=== PATIENT | female | born 1945 | race Caucasian/White ===

== ENCOUNTER → 2022-11-19 | Outpatient (CLI) | payer MEDICARE, OTHER ==
[2022-11-19 11:03] LABS: HCT 50.8 % (37.2-46.3); MCHC 31.5 d/dL (32.0-37.0); MCV 95.3 FL (80.0-97.0); Mean Platelet Volume 9.8 FL (9.5-12.2); NRBC Per 100 WBC 0 X 10*3/uL (0.00-0.01); Platelet Count 234 X 10*3/uL (140-440); RBC 5.33 X 10*6/uL (4.10-5.20); RDW 14.3 % (11.5-14.5); WBC 8.54 X 10*3/uL (4.50-10.00)
[2022-11-19 11:04] LABS: Basophils # (A) 0.04 X 10*3/uL (0.00-0.10); Basophils % (A) 0.5 %; Eosinophils # (A) 0.17 X 10*3/uL (0.04-0.35); Lymphocytes # (A) 1.53 X 10*3/uL (0.90-5.00); Lymphocytes % (A) 17.9 %; Monocytes # (A) 0.65 X 10*3/uL (0.20-1.00); Monocytes % (A) 7.6 %; Neutrophils # (A) 6.12 X 10*3/uL (1.80-7.70); Neutrophils % (A) 71.6 %
[2022-11-19 11:42] LABS: ALT 11 U/L (8-44); AST 22 U/L (13-35); Albumin 3.9 d/dL (3.8-4.9); Albumin/Globulin Ratio 1.44 Ratio (1.60-3.17); Alkaline Phosphatase 151 U/L (41-126); Bilirubin, Conjugated 0.35 mg/dL (0.20-0.40); Bilirubin,Unconjugated 0.85 mg/dL (0.20-1.00); Calcium 9.6 mg/dL (8.7-10.3); Carbon Dioxide 27.8 mmol/L (21.6-31.8); Chloride 104 mmol/L (96-109); Globulin 2.7 d/dL (1.6-3.3); Glucose 125 mg/dL (70-110); Magnesium 1.8 mg/dL (1.5-2.4); Potassium 4.3 mmol/L (3.5-5.5); Sodium 143 mmol/L (135-145); Total Bilirubin 1.2 mg/dL (0.3-1.2); Total Protein 6.6 d/dL (6.2-8.2)
[2022-11-19 14:18] LABS: Creatinine,Urine Random 50.7 mg/dL (28.0-217.0); Total Protein,Urine Random 7.3 mg/dL (0.0-13.5)
[2022-11-20 15:56] LABS: Chol/HDL Ratio 2.54 Ratio; LDL Cholesterol,Calculated 74.8 mg/dL (0.0-131.0); VLDL Calculation 19.78 mg/dL (5.00-40.00)
== END | disposition home or self-care (01) ==
LOC: LABWHC1 07:10
PROVIDERS: ATTEND Family Medicine
DX: Z51.81 Encounter for therapeutic drug level monitoring (principal); Z94.4 Liver transplant status; Z79.899 Other long term (current) drug therapy; Z48.298 Encounter for aftercare following other organ transplant; D84.9 Immunodeficiency, unspecified; E55.9 Vitamin D deficiency, unspecified
CPT/HCPCS: 36415; 80048; 80061; 80076; 80195; 82306; 82465; 82570; 83735; 84156; 85025

== ENCOUNTER → 2023-02-20 | Outpatient (CLI) | payer MEDICARE, OTHER ==
[2023-02-20 11:13] LABS: Basophils # (A) 0.03 X 10*3/uL (0.00-0.10); Basophils % (A) 0.4 %; Eosinophils # (A) 0.21 X 10*3/uL (0.04-0.35); Eosinophils % (A) 2.9 %; HCT 48.9 % (37.2-46.3); Lymphocytes # (A) 2.02 X 10*3/uL (0.90-5.00); Lymphocytes % (A) 28.1 %; MCH 30.3 pg (27.0-32.0); MCHC 32.7 d/dL (32.0-37.0); MCV 92.6 FL (80.0-97.0); Monocytes # (A) 0.58 X 10*3/uL (0.20-1.00); Monocytes % (A) 8.1 %; NRBC Per 100 WBC 0 X 10*3/uL (0.00-0.01); Neutrophils # (A) 4.34 X 10*3/uL (1.80-7.70); Neutrophils % (A) 60.2 %; Platelet Count 225 X 10*3/uL (140-440); RBC 5.28 X 10*6/uL (4.10-5.20)
[2023-02-20 11:28] LABS: ALT 12 U/L (8-44); AST 18 U/L (13-35); Albumin 3.9 d/dL (3.8-4.9); Albumin/Globulin Ratio 1.56 Ratio (1.60-3.17); Alkaline Phosphatase 156 U/L (41-126); BUN/Creat Ratio 17.33 Ratio (12.00-20.00); Bilirubin, Conjugated 0.39 mg/dL (0.20-0.40); Bilirubin,Unconjugated 0.91 mg/dL (0.20-1.00); Blood Urea Nitrogen 15.6 mg/dL (9.0-27.0); Calcium 9.6 mg/dL (8.7-10.3); Carbon Dioxide 34.3 mmol/L (21.6-31.8); Chloride 108 mmol/L (96-109); Chol/HDL Ratio 2.63 Ratio; Globulin 2.5 d/dL (1.6-3.3); Glucose 110 mg/dL (70-110); LDL Cholesterol,Calculated 64.5 mg/dL (0.0-131.0); Magnesium 1.7 mg/dL (1.5-2.4); Potassium 4.8 mmol/L (3.5-5.5); Sodium 148 mmol/L (135-145); Total Bilirubin 1.3 mg/dL (0.3-1.2); Total Protein 6.4 d/dL (6.2-8.2)
== END | disposition home or self-care (01) ==
LOC: LABWHC1 07:01
PROVIDERS: ATTEND Internal Medicine
DX: Z51.81 Encounter for therapeutic drug level monitoring (principal); D84.9 Immunodeficiency, unspecified; Z94.4 Liver transplant status; Z48.298 Encounter for aftercare following other organ transplant; Z79.899 Other long term (current) drug therapy
CPT/HCPCS: 36415; 80048; 80061; 80076; 80195; 83735; 85025

== ENCOUNTER 2023-05-11 11:35 | Inpatient (IN) | payer MEDICARE, OTHER ==
[2023-05-11] MEDS ORDERED: SODIUM CHLORIDE 0.9% 1,000 ML IV STA (11:46)
--- NOTE | 2023-05-11 11:52 | ED ---
Weakness HPI - General Chief complaint: Weakness Stated complaint: Weakness Time Seen by Provider: 05/11/23 11:40 Source: patient, family, EMS, RN notes reviewed Limitations: no limitations - History of Present Illness Initial comments: This is a 77 year old female who presents to the emergency department for generalized weakness. States that over the last week she has had no energy. Also reports diarrhea. Describes the diarrhea as being watery, but believes that she is only going a few times a day. Denies any blood in her stool or dark or tarry stools. Denies any associated abdominal pain, nausea, vomiting, or fevers. She had been on Amoxicillin 2 weeks ago for a dental cleaning and had a cataract removed on the right 2 weeks ago. EMS noted her to be hypotensive and hypoxic. Patient denies any chest pain or shortness of breath. States that her BP is usually high. MD Complaint: generalized weakness Onset/Timin -: week(s) - Related Data Home Medications Medication Instructions Recorded Confirmed Atorvastatin [Lipitor] 10 mg PO DAILY 05/11/23 05/11/23 Cholecalciferol [Vitamin D3 (25 50 mcg PO DAILY 05/11/23 05/11/23 Mcg = 1000 Iu)] Ketorolac 0.5% Ophth Soln [Acular 1 drop RIGHT EYE BID 05/11/23 05/11/23 0.5%] Omeprazole [PriLOSEC] 20 mg PO DAILY 05/11/23 05/11/23 Sirolimus 1 mg PO DAILY 05/11/23 05/11/23 amLODIPine [Norvasc] 5 mg PO DAILY 05/11/23 05/11/23 atenoloL [Tenormin] 75 mg PO DAILY 05/11/23 05/11/23 azaTHIOprine [Imuran] 50 mg PO DAILY 05/11/23 05/11/23 prednisoLONE ACETATE 1% OPHTH 1 drop RIGHT EYE BID 05/11/23 05/11/23 [Pred Forte 1%] ursodioL [Ursodiol] 300 mg PO BID 05/11/23 05/11/23 Allergies Allergy/AdvReac Type Severity Reaction Status Date / Time No Known Allergies Allergy Verified 05/11/23 12:23 Review of Systems ROS Statement: Those systems with pertinent positive or pertinent negative responses have been documented in the HPI. ROS Other: All systems not noted in ROS Statement are negative. Past Medical History Past Medical History: Hypertension History of Any Multi-Drug Resistant Organisms: None Reported Additional Past Surgical History / Comment(s): liver transplant Past Psychological History: No Psychological Hx Reported Smoking Status: Never smoker Past Alcohol Use History: None Reported Past Drug Use History: None Reported General Exam Limitations: no limitations General appearance: alert, in no apparent distress Head exam: Present: atraumatic, normocephalic, normal inspection Respiratory exam: Present: normal lung sounds bilaterally. Absent: respiratory distress, wheezes, rales, rhonchi, stridor Cardiovascular Exam: Present: regular rate, normal rhythm, normal heart sounds. Absent: systolic murmur, diastolic murmur, rubs, gallop, clicks GI/Abdominal exam: Present: soft, normal bowel sounds. Absent: distended, tenderness, guarding, rebound, rigid Neurological exam: Present: alert, oriented X3, CN II-XII intact Psychiatric exam: Present: normal affect, normal mood Skin exam: Present: warm, dry, intact, normal color. Absent: rash Course Vital Signs 05/11/23 05/11/23 05/11/23 11:37 13:00 14:00 Temperature 98.7 F Pulse Rate 82 75 74 Respiratory 20 18 18 Rate Blood Pressure 88/62 124/68 133/55 O2 Sat by Pulse 89 L 96 95 Oximetry 05/11/23 05/11/23 05/11/23 14:39 17:07 18:22 Temperature 98.9 F 98 F 97.9 F Pulse Rate 72 65 95 Respiratory 18 16 20 Rate Blood Pressure 111/61 106/56 115/52 O2 Sat by Pulse Oximetry 05/11/23 05/11/23 20:46 22:05 Temperature Pulse Rate 65 63 Respiratory 19 17 Rate Blood Pressure 117/64 123/57 O2 Sat by Pulse 95 97 Oximetry Medical Decision Making - Medical Decision Making This is a 77-year-old female who presents to the emergency department for generalized weakness. Was pt. sent in by a medical professional or institution? @ -No Did you speak to anyone other than the patient for history? @ -No Did you review nursing and triage notes? @ -Yes, and I agree, it is accurate with regards to the patient's symptoms. Were old charts reviewed? @ -No Differential Diagnosis? @ -Differential Weakness: Hypoglycemia, shock, sepsis, hyponatremia, anemia, infection, WI, ETOH, adverse medicine reaction, overdose, stroke, this is not meant to be an all-inclusive list. EKG interpreted by me (3pts min.)? @ -EKG interpreted by me demonstrating the following: Sinus rhythm. Ve ntricular rate 81 beats per minute, NV interval 148 ms, QRS duration 100 ms, QTC 403 ms. X-rays interpreted by me (1pt min.)? @ -Chest x-ray obtained, my interpretation identifies no localized consolidations or infiltrates. CT interpreted by me (1pt min.)? @ -CT scan of the abdomen and pelvis obtained. My interpretation identifies no evidence of bowel wall thickening or free air. U/S interpreted by me (1pt. min.)? @ -Not obtained What testing was considered but not performed? (CT, X-rays, U/S, labs)? Why? @ -None What meds were considered but not given? Why? @ -None Did you discuss the management of the patient with other professionals? @ -Yes, Dr. Kim, who accepts the patient for admission Did you reconcile home meds? @ -Yes Was smoking cessation discussed for >3mins.? @ -No Was critical care preformed (if so, how long)? @ -No Were there social determinants of health that impacted care today? How? (Homelessness, low income, unemployed, alcoholism, drug addiction, transportation, low edu. Level, literacy, decrease access to med. care, senior living, rehab)? @ -No Was there de-escalation of care discussed even if they declined? (Discuss DNR or withdrawal of care, Hospice)? @ -No What co-morbidities impacted this encounter? (DM, HTN, Smoking, COPD, CAD, Cancer, CVA, Hep., AIDS, mental health diagnosis, sleep apnea, morbid obesity)? @ -HTN Was patient admitted / discharged? @ -Admitted. Patient was hypotensive on arrival with a BP of 88/62. This was treated with IV fluids and she had improvement in her pressure. Lab work obtained revealing leukocytosis and multiple other irregularities including an initial bicarb of 12, poor renal function, elevated lactic acid of 2.9, low magnesium of 1.3, and an elevated troponin of 0.061. Urinalysis negative for signs of infection, C.diff, COVID, influenza, and RSV testing were negative. Chest x-ray demonstrates an elevated right hemidiaphragm with bilateral discoid atelectasis or scarring favored over pneumonia. They also advised correlation for pulmonary arterial hypertension. We did also obtain a computed tomography scan of the abdomen and pelvis for further evaluation. There is no evidence for any acute intra-abdominal process. She has transplant changes to the liver with a masslike area in the right hepatic lobe measuring up to 4.3 cm as well as pneumobilia secondary to transplant changes. Unlikely that these findings are related to the patient's current presentation. She has no abdominal pain and is essentially asymptomatic aside from the weakness and diarrhea. The cause of her symptoms and multiple lab abnormalities is not entirely clear. Blood cultures were obtained. Patient admitted to medicine for weakness, mixed acid base disturbance, leukocytosis, and elevated troponin. Maintenance fluids initiated and serial troponins ordered. Undiagnosed new problem with uncertain prognosis? @ -None Drug Therapy requiring intensive monitoring for toxicity (Heparin, Nitro, Insulin, Cardizem)? @ -None Were any procedures done? @ -None Diagnosis/symptom? @ -Weakness, mixed acid base disturbance, leukocytosis, elevated troponin Acute, or Chronic, or Acute on Chronic? @ -Acute Uncomplicated (without systemic symptoms) or Complicated (systemic symptoms)? @ -Complicated Side effects of treatment? @ -None Exacerbation, Progression, or Severe Exacerbation] @ -Not applicable Poses a threat to life or bodily function? @ -Yes This case was discussed in detail with the attending ED physician, Dr. Adhikari. Presentation, findings, and treatment plan discussed in detail as well. - Lab Data Result diagrams: 05/11/23 11:58 05/11/23 11:58 Lab Results 05/11/23 05/11/23 05/11/23 Range/Units 11:58 11:58 11:58 WBC 16.8 H (3.8-10.6) k/uL RBC 4.48 (3.80-5.40) m/uL Hgb 13.6 (11.4-16.0) gm/dL Hct 41.9 (34.0-46.0) % MCV 93.4 (80.0-100.0) fL MCH 30.3 (25.0-35.0) pg MCHC 32.4 (31.0-37.0) g/dL RDW 13.2 (11.5-15.5) % Plt Count 224 (150-450) k/uL MPV 8.1 Neutrophils % 90 % Lymphocytes % 4 % Monocytes % 5 % Eosinophils % 0 % Basophils % 0 % Neutrophils # 15.1 H (1.3-7.7) k/uL Lymphocytes # 0.7 L (1.0-4.8) k/uL Monocytes # 0.8 (0-1.0) k/uL Eosinophils # 0.0 (0-0.7) k/uL Basophils # 0.0 (0-0.2) k/uL Manual Slide Review Performed Hypochromasia Slight PT 12.8 H (10.0-12.5) sec INR 1.2 H (<1.2) APTT 24.0 (22.0-30.0) sec VBG pH (7.31-7.41) VBG pCO2 (37-51) mmHg VBG HCO3 (24-28) mmol/L Sodium (137-145) mmol/L Potassium (3.5-5.1) mmol/L Chloride (98-107) mmol/L Carbon Dioxide (22-30) mmol/L Anion Gap mmol/L BUN (7-17) mg/dL Creatinine (0.52-1.04) mg/dL Est GFR (CKD-EPI)AfAm (>60 ml/min/1.73 sqM) Est GFR (CKD-EPI)NonAf (>60 ml/min/1.73 sqM) Glucose (74-99) mg/dL Lactic Ac Sepsis Rflx Plasma Lactic Acid Clark (0.7-2.0) mmol/L Calcium (8.4-10.2) mg/dL Magnesium (1.6-2.3) mg/dL Total Bilirubin (0.2-1.3) mg/dL AST (14-36) U/L ALT (4-34) U/L Alkaline Phosphatase (38-126) U/L Troponin I (0.000-0.034) ng/mL Total Protein (6.3-8.2) g/dL Albumin (3.5-5.0) g/dL Urine Color Yellow Urine Appearance Cloudy H (Clear) Urine pH 5.5 (5.0-8.0) Ur Specific [place] 1.016 (1.001-1.035) Urine Protein 2+ H (Negative) Urine Glucose (UA) Trace H (Negative) Urine Ketones Negative (Negative) Urine Blood Moderate H (Negative) Urine Nitrite Negative (Negative) Urine Bilirubin Negative (Negative) Urine Urobilinogen <2.0 (<2.0) mg/dL Ur Leukocyte Esterase Negative (Negative) Urine RBC 4 (0-5) /hpf Urine WBC 3 (0-5) /hpf Ur Squamous Epith Cells 2 (0-4) /hpf Urine Bacteria Rare H (None) /hpf Hyaline Casts 10 H (0-2) /lpf Granular Casts 3 (0) /lpf Urine Mucus Moderate H (None) /hpf C. difficile (EIA) Intrp (Negative) Influenza Type A (PCR) (Not Detectd) Influenza Type B (PCR) (Not Detectd) RSV (PCR) (Not Detectd) SARS-CoV-2 (PCR) (Not Detectd) 05/11/23 05/11/23 05/11/23 Range/Units 11:58 11:58 11:58 WBC (3.8-10.6) k/uL RBC (3.80-5.40) m/uL Hgb (11.4-16.0) gm/dL Hct (34.0-46.0) % MCV (80.0-100.0) fL MCH (25.0-35.0) pg MCHC (31.0-37.0) g/dL RDW (11.5-15.5) % Plt Count (150-450) k/uL MPV Neutrophils % % Lymphocytes % % Monocytes % % Eosinophils % % Basophils % % Neutrophils # (1.3-7.7) k/uL Lymphocytes # (1.0-4.8) k/uL Monocytes # (0-1.0) k/uL Eosinophils # (0-0.7) k/uL Basophils # (0-0.2) k/uL Manual Slide Review Hypochromasia PT (10.0-12.5) sec INR (<1.2) APTT (22.0-30.0) sec VBG pH (7.31-7.41) VBG pCO2 (37-51) mmHg VBG HCO3 (24-28) mmol/L Sodium 140 (137-145) mmol/L Potassium 3.7 (3.5-5.1) mmol/L Chloride 114 H (98-107) mmol/L Carbon Dioxide 12 L (22-30) mmol/L Anion Gap 14 mmol/L BUN 18 H (7-17) mg/dL Creatinine 1.13 H (0.52-1.04) mg/dL Est GFR (CKD-EPI)AfAm 55 (>60 ml/min/1.73 sqM) Est GFR (CKD-EPI)NonAf 48 (>60 ml/min/1.73 sqM) Glucose 167 H (74-99) mg/dL Lactic Ac Sepsis Rflx Plasma Lactic Acid Clark 2.9 H* (0.7-2.0) mmol/L Calcium 8.8 (8.4-10.2) mg/dL Magnesium 1.3 L (1.6-2.3) mg/dL Total Bilirubin 2.1 H (0.2-1.3) mg/dL AST 69 H (14-36) U/L ALT 36 H (4-34) U/L Alkaline Phosphatase 159 H (38-126) U/L Troponin I 0.061 H* (0.000-0.034) ng/mL Total Protein 6.3 (6.3-8.2) g/dL Albumin 3.1 L (3.5-5.0) g/dL Urine Color Urine Appearance (Clear) Urine pH (5.0-8.0) Ur Specific [place] (1.001-1.035) Urine Protein (Negative) Urine Glucose (UA) (Negative) Urine Ketones (Negative) Urine Blood (Negative) Urine Nitrite (Negative) Urine Bilirubin (Negative) Urine Urobilinogen (<2.0) mg/dL Ur Leukocyte Esterase (Negative) Urine RBC (0-5) /hpf Urine WBC (0-5) /hpf Ur Squamous Epith Cells (0-4) /hpf Urine Bacteria (None) /hpf Hyaline Casts (0-2) /lpf Granular Casts (0) /lpf Urine Mucus (None) /hpf C. difficile (EIA) Intrp (Negative) Influenza Type A (PCR) (Not Detectd) Influenza Type B (PCR) (Not Detectd) RSV (PCR) (Not Detectd) SARS-CoV-2 (PCR) (Not Detectd) 05/11/23 05/11/23 05/11/23 Range/Units 11:58 11:58 13:52 WBC (3.8-10.6) k/uL RBC (3.80-5.40) m/uL Hgb (11.4-16.0) gm/dL Hct (34.0-46.0) % MCV (80.0-100.0) fL MCH (25.0-35.0) pg MCHC (31.0-37.0) g/dL RDW (11.5-15.5) % Plt Count (150-450) k/uL MPV Neutrophils % % Lymphocytes % % Monocytes % % Eosinophils % % Basophils % % Neutrophils # (1.3-7.7) k/uL Lymphocytes # (1.0-4.8) k/uL Monocytes # (0-1.0) k/uL Eosinophils # (0-0.7) k/uL Basophils # (0-0.2) k/uL Manual Slide Review Hypochromasia PT (10.0-12.5) sec INR (<1.2) APTT (22.0-30.0) sec VBG pH (7.31-7.41) VBG pCO2 (37-51) mmHg VBG HCO3 (24-28) mmol/L Sodium (137-145) mmol/L Potassium (3.5-5.1) mmol/L Chloride (98-107) mmol/L Carbon Dioxide (22-30) mmol/L Anion Gap mmol/L BUN (7-17) mg/dL Creatinine (0.52-1.04) mg/dL Est GFR (CKD-EPI)AfAm (>60 ml/min/1.73 sqM) Est GFR (CKD-EPI)NonAf (>60 ml/min/1.73 sqM) Glucose (74-99) mg/dL Lactic Ac Sepsis Rflx Y Plasma Lactic Acid Clark (0.7-2.0) mmol/L Calcium (8.4-10.2) mg/dL Magnesium (1.6-2.3) mg/dL Total Bilirubin (0.2-1.3) mg/dL AST (14-36) U/L ALT (4-34) U/L Alkaline Phosphatase (38-126) U/L Troponin I (0.000-0.034) ng/mL Total Protein (6.3-8.2) g/dL Albumin (3.5-5.0) g/dL Urine Color Urine Appearance (Clear) Urine pH (5.0-8.0) Ur Specific [place] (1.001-1.035) Urine Protein (Negative) Urine Glucose (UA) (Negative) Urine Ketones (Negative) Urine Blood (Negative) Urine Nitrite (Negative) Urine Bilirubin (Negative) Urine Urobilinogen (<2.0) mg/dL Ur Leukocyte Esterase (Negative) Urine RBC (0-5) /hpf Urine WBC (0-5) /hpf Ur Squamous Epith Cells (0-4) /hpf Urine Bacteria (None) /hpf Hyaline Casts (0-2) /lpf Granular Casts (0) /lpf Urine Mucus (None) /hpf C. difficile (EIA) Intrp Negative (Negative) Influenza Type A (PCR) Not Detected (Not Detectd) Influenza Type B (PCR) Not Detected (Not Detectd) RSV (PCR) Not Detected (Not Detectd) SARS-CoV-2 (PCR) Not Detected (Not Detectd) 05/11/23 Range/Units 14:47 WBC (3.8-10.6) k/uL RBC (3.80-5.40) m/uL Hgb (11.4-16.0) gm/dL Hct (34.0-46.0) % MCV (80.0-100.0) fL MCH (25.0-35.0) pg MCHC (31.0-37.0) g/dL RDW (11.5-15.5) % Plt Count (150-450) k/uL MPV Neutrophils % % Lymphocytes % % Monocytes % % Eosinophils % % Basophils % % Neutrophils # (1.3-7.7) k/uL Lymphocytes # (1.0-4.8) k/uL Monocytes # (0-1.0) k/uL Eosinophils # (0-0.7) k/uL Basophils # (0-0.2) k/uL Manual Slide Review Hypochromasia PT (10.0-12.5) sec INR (<1.2) APTT (22.0-30.0) sec VBG pH 7.44 H (7.31-7.41) VBG pCO2 29 L (37-51) mmHg VBG HCO3 20 L (24-28) mmol/L Sodium (137-145) mmol/L Potassium (3.5-5.1) mmol/L Chloride (98-107) mmol/L Carbon Dioxide (22-30) mmol/L Anion Gap mmol/L BUN (7-17) mg/dL Creatinine (0.52-1.04) mg/dL Est GFR (CKD-EPI)AfAm (>60 ml/min/1.73 sqM) Est GFR (CKD-EPI)NonAf (>60 ml/min/1.73 sqM) Glucose (74-99) mg/dL Lactic Ac Sepsis Rflx Plasma Lactic Acid Clark (0.7-2.0) mmol/L Calcium (8.4-10.2) mg/dL Magnesium (1.6-2.3) mg/dL Total Bilirubin (0.2-1.3) mg/dL AST (14-36) U/L ALT (4-34) U/L Alkaline Phosphatase (38-126) U/L Troponin I (0.000-0.034) ng/mL Total Protein (6.3-8.2) g/dL Albumin (3.5-5.0) g/dL Urine Color Urine Appearance (Clear) Urine pH (5.0-8.0) Ur Specific [place] (1.001-1.035) Urine Protein (Negative) Urine Glucose (UA) (Negative) Urine Ketones (Negative) Urine Blood (Negative) Urine Nitrite (Negative) Urine Bilirubin (Negative) Urine Urobilinogen (<2.0) mg/dL Ur Leukocyte Esterase (Negative) Urine RBC (0-5) /hpf Urine WBC (0-5) /hpf Ur Squamous Epith Cells (0-4) /hpf Urine Bacteria (None) /hpf Hyaline Casts (0-2) /lpf Granular Casts (0) /lpf Urine Mucus (None) /hpf C. difficile (EIA) Intrp (Negative) Influenza Type A (PCR) (Not Detectd) Influenza Type B (PCR) (Not Detectd) RSV (PCR) (Not Detectd) SARS-CoV-2 (PCR) (Not Detectd) - Radiology Data Radiology results: report reviewed, image reviewed Disposition Clinical Impression: Weakness, Elevated troponin, Leukocytosis, Disturbance of acid-base balance Disposition: ADMITTED IP TO THIS HOSP Time of Disposition: 17:30
--- NOTE | 2023-05-11 13:15 | XR ---
EXAMINATION TYPE: XR chest 2V DATE OF EXAM: 05/11/2023 COMPARISON: NONE TECHNIQUE: PA and lateral views submitted. HISTORY: Weakness FINDINGS: The lungs are clear and there is no pneumothorax, pleural effusion, or focal pneumonia. Heart size normal and no overt failure. Osseous structures demonstrate hypertrophic and degenerative changes of the spine. Diffuse osteopenia. Age indeterminate mild wedge deformity thoracolumbar junction. Elevate d right hemidiaphragm. Large hiatal hernia. Linear changes bilateral lungs for which atelectasis or s carring favored. Pulmonary arteries are prominent correlate for pulmonary arterial retention. Biapica l pleural thickening. IMPRESSION: 1. Elevated right hemidiaphragm with bilateral discoid atelectasis or scarring favored over pneumonia . 2. Large hiatal hernia. 3. Correlate for pulmonary arterial hypertension..
[2023-05-11 13:38] LABS: INR 1.2 (<1.2); Prothrombin Time 12.8 sec (10.0-12.5)
[2023-05-11 13:45] LABS: Basophils % (A) 0 %; Eosinophils % (A) 0 %; HCT 41.9 % (34.0-46.0); HGB 13.6 gm/dL (11.4-16.0); Hypochromasia Slight; Lymphocytes # (A) 0.7 k/uL (1.0-4.8); Lymphocytes % (A) 4 %; MCH 30.3 pg (25.0-35.0); MCHC 32.4 g/dL (31.0-37.0); MCV 93.4 fL (80.0-100.0); Mean Platelet Volume 8.1; Monocytes # (A) 0.8 k/uL (0-1.0); Monocytes % (A) 5 %; Neutrophils # (A) 15.1 k/uL (1.3-7.7); Neutrophils % (A) 90 %; Platelet Count 224 k/uL (150-450); RBC 4.48 m/uL (3.80-5.40); RDW 13.2 % (11.5-15.5); WBC 16.8 k/uL (3.8-10.6)
[2023-05-11 14:02] LABS: ALT 36 U/L (4-34); AST 69 U/L (14-36); African American GFR (CKD) 55 (>60 ml/min/1.73 sqM); Albumin 3.1 g/dL (3.5-5.0); Alkaline Phosphatase 159 U/L (38-126); Anion Gap 14 mmol/L; Blood Urea Nitrogen 18 mg/dL (7-17); Calcium 8.8 mg/dL (8.4-10.2); Carbon Dioxide 12 mmol/L (22-30); Chloride 114 mmol/L (98-107); Glucose 167 mg/dL (74-99); Magnesium 1.3 mg/dL (1.6-2.3); Non-African American GFR(CKD) 48 (>60 ml/min/1.73 sqM); Potassium 3.7 mmol/L (3.5-5.1); Sodium 140 mmol/L (137-145); Total Bilirubin 2.1 mg/dL (0.2-1.3); Total Protein 6.3 g/dL (6.3-8.2)
[2023-05-11 15:53] LABS: Appearance,Urine Cloudy (Clear); Bacteria,Urine Rare /hpf; Bilirubin,Urine Negative (Negative); Blood,Urine Moderate (Negative); Color,Urine Yellow; Glucose,Urine (UA) Trace (Negative); Granular Casts,Urine 3 /lpf (0); Hyaline Casts,Urine 10 /lpf (0-2); Ketones,Urine Negative (Negative); Leukocyte Esterase,Urine Negative (Negative); Mucus,Urine Moderate /hpf; Nitrite,Urine Negative (Negative); PH, Urine 5.5 (5.0-8.0); Protein,Urine 2+ (Negative); RBC,Urine 4 /hpf (0-5); Specific Gravity,Urine 1.016 (1.001-1.035); Squamous Epithelial Cell,Urine 2 /hpf (0-4); Urobilinogen,Urine <2.0 mg/dL (<2.0); WBC,Urine 3 /hpf (0-5)
[2023-05-11] MEDS ORDERED: MAGNESIUM OXIDE 400 MG TAB PO STA (16:13)
--- NOTE | 2023-05-11 17:11 | CT ---
EXAMINATION TYPE: CT abdomen pelvis wo con CT DLP: 731.6 mGycm, Automated exposure control for dose reduction was used. DATE OF EXAM: 05/11/2023 4:49 PM COMPARISON: None. CLINICAL INDICATION:Female, 77 years old with history of Abnormal labs, hypotensive, hx of liver euceda splant; Abnormal labs, hypotensive, hx of liver transplant TECHNIQUE: Axial CT abdomen pelvis wo con;Sagittal and coronal reformats were created on a separate workstation. Contrast used: mL of , (none if empty) Oral contrast used: without Oral Contrast (none if empty) FINDINGS: LOWER CHEST: Elevated right diaphragm. The heart is mildly enlarged for size. Moderate coronary arter y atherosclerosis. ABDOMEN LIVER: Transplant changes to the liver are present. Hepatic lobe mass like area with low attenuation measuring 3.5 x 4.3 cm. GALLBLADDER AND BILE DUCTS: The gallbladder surgically absent. There is few foci of gas likely within the biliary system. Pneumobilia in the common bile duct is present. PANCREAS: Unremarkable. SPLEEN: Unremarkable. ADRENAL GLANDS: Unremarkable. KIDNEYS AND URETERS: No evidence of hydronephrosis or renal calculus. The ureters are unremarkable. PELVIS BLADDER: Unremarkable REPRODUCTIVE: Unremarkable. ABDOMEN & PELVIS STOMACH AND BOWEL: No evidence of bowel obstruction. Large hiatal hernia. PERITONEUM/RETROPERITONEUM: No evidence of pneumoperitoneum or free fluid. VASCULATURE: No evidence of aortic aneurysm. MUSCULOSKELETAL: No acute osseous abnormalities. Moderate disc degeneration changes are present throu ghout the thoracolumbar spine. Sclerotic appearance with enlargement of the left hemipelvis. LYMPH NODES: No gross evidence for lymphadenopathy. SOFT TISSUE/ABDOMINAL WALL: Unremarkable IMPRESSION: 1. No evidence for intra-abdominal hematoma or hemorrhage. 2. Transplant changes to the liver Masslike area within the right hepatic lobe measuring up to 4.3 c m. Further evaluation with MRI is recommended. 3. Pneumobilia likely secondary to transplant changes. 4. Large hiatal hernia. 5. 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
[2023-05-11 17:31] LABS: VBG PH 7.44 (7.31-7.41)
[2023-05-11] MEDS ORDERED: ONDANSETRON 4 MG/2 ML VIAL IVP PRN (17:51)
[2023-05-11] MEDS ORDERED: ACETAMINOPHEN TAB 325 MG TAB PO PRN (17:51)
[2023-05-11] MEDS ORDERED: NALOXONE 0.4 MG/ML 1 ML VIAL IV PRN (17:51)
[2023-05-11] MEDS ORDERED: HYDROcodone/APAP 5-325MG 1 EACH TAB PO PRN (17:51)
[2023-05-11] MEDS: SODIUM CHLORIDE 0.9% 1,000 ML IV SCH (18:45)
[2023-05-11] MEDS: ursodioL 300 MG CAP PO SCH (20:43)
[2023-05-11] MEDS: prednisoLONE ACETATE 1% OPHTH DROPS 5 ML BTL RIGHT EYE SCH (20:43)
[2023-05-11] MEDS: KETOROLAC 0.5% OPHTH DROPS 5 ML BTL RIGHT EYE SCH (20:43)
--- NOTE | 2023-05-12 01:50 | P.HPIM ---
History of Present Illness H&P Date: 05/11/23 Patient is a 77-year-old female with a PMH of hypertension, s/p liver transplant 23 years ago (doesn't recall why), who presents to the emergency room with complaints of generalized weakness and area. Patient reports that she began having loose bowel movements roughly one week ago. Reports having undergone a dental cleaning roughly a month ago when she was given a 2000 mg single dose of amoxicillin as per med review. She has been having 2 watery bowel movements daily for the past 1 week without blood or mucus. Denies focal weakness, numbness, tingling. Denied chest discomfort, shortness of breath, fever, chills, cough, nausea, vomiting, or pain. Denies any urinary complaints. CT abdomen and pelvis in the emergency room revealed a 4.3 cm mass-like area hypertension with large hiatal hernia. Chest x-ray revealed findings of arterial hypertension. EKG reveals sinus rhythm at 81 bpm with T-wave inversion in leads V2 with flattening in lead V3 with no additional ST/T-wave changes noted as reviewed by me. Laboratory evaluation was remarkable for leukocytosis of 16.8, CO2 12, BUN 18, creatinine 1.13, lactic acid 2.9, magnesium 1.3, AST 69, ALT 36, troponin 0.061 with a viral respiratory panel negative. ED documentation reviewed and case discussed with ED provider. Review of systems: Pertinent positives and negatives as discussed in HPI, a complete review of systems was performed and all other systems are negative. Physical examination: Vital signs reviewed General: non toxic, no distress, appears at stated age, obese Derm: no unusual rashes/lesions, warm Head: atraumatic, normocephalic, symmetric Eyes: EOMI, no lid lag, anicteric sclera, pupils equal round reactive to light ENT: Nose and ears atraumatic Neck: No cervical lymphadenopathy, trachea midline, supple Mouth: no lip lesion, mucus membranes moist Cardiovascular: S1S2 reg, no murmur, positive dorsalis pedis pulse bilateral, no edema Lungs: CTA bilateral, no rhonchi, no rales, no accessory muscle use Abdominal: soft, nontender to palpation, no guarding Ext: muscle strength 4 out of 5 in all 4 extremities grossly, no gross muscle atrophy, no contractures, Neuro: CN II-XI grossly intact, no gross focal neuro deficits Psych: Alert, oriented, appropriate affect Assessment: Elevated troponin, suspect type II IN in setting of dehydration from diarrhea Lactic acidosis Acute kidney injury Persistent diarrhea Hypomagnesemia Metabolic acidosis Abnormal LFTs, likely due to ongoing acute illness Chronic conditions: Hypertension, status post liver transplant Imaging: CT abdomen and pelvis in the emergency room revealed a 4.3 cm mass-like area hypertension with large hiatal hernia. Chest x-ray revealed findings of arterial hypertension. EKG reveals sinus rhythm at 81 bpm with T-wave inversion in leads V2 with flattening in lead V3 with no additional ST/T-wave changes noted as reviewed by me. Data Review: Laboratory evaluation was remarkable for leukocytosis of 16.8, CO2 12, BUN 18, creatinine 1.13, lactic acid 2.9, magnesium 1.3, AST 69, ALT 36, troponin 0.061 with a viral respiratory panel negative. Plan: Check lactoferrin and calprotectin levels Test for C. diff Continue with IV fluids with normal saline 75 mL per hour and monitor lactic acid levels for resolution Cardiac monitoring Trend troponin Replace magnesium and monitor Monitor LFTs DVT prophylaxis: Lovenox Subq The patient is admitted with an anticipated greater than 2 midnight stay for evaluation of elevated troponin CODE STATUS: Full Code Discussed with: Patient Anticipated discharge place: Home Past Medical History Past Medical History: Hypertension History of Any Multi-Drug Resistant Organisms: None Reported Additional Past Surgical History / Comment(s): liver transplant. cataract surgery Past Anesthesia/Blood Transfusion Reactions: No Reported Reaction Past Psychological History: No Psychological Hx Reported Smoking Status: Never smoker Past Alcohol Use History: None Reported Past Drug Use History: None Reported Medications and Allergies Home Medications Medication Instructions Recorded Confirmed Type Atorvastatin [Lipitor] 10 mg PO DAILY 05/11/23 05/11/23 History Cholecalciferol [Vitamin D3 (25 50 mcg PO DAILY 05/11/23 05/11/23 History Mcg = 1000 Iu)] Ketorolac 0.5% Ophth Soln [Acular 1 drop RIGHT EYE BID 05/11/23 05/11/23 History 0.5%] Omeprazole [PriLOSEC] 20 mg PO DAILY 05/11/23 05/11/23 History Sirolimus 1 mg PO DAILY 05/11/23 05/11/23 History amLODIPine [Norvasc] 5 mg PO DAILY 05/11/23 05/11/23 History atenoloL [Tenormin] 75 mg PO DAILY 05/11/23 05/11/23 History azaTHIOprine [Imuran] 50 mg PO DAILY 05/11/23 05/11/23 History prednisoLONE ACETATE 1% OPHTH 1 drop RIGHT EYE BID 05/11/23 05/11/23 History [Pred Forte 1%] ursodioL [Ursodiol] 300 mg PO BID 05/11/23 05/11/23 History Allergies Allergy/AdvReac Type Severity Reaction Status Date / Time No Known Allergies Allergy Verified 05/11/23 12:23 Physical Exam Vitals: Vital Signs Temp Pulse Pulse Resp BP BP Pulse Ox 05/11/23 22:33 97.4 F L 66 18 125/68 95 05/11/23 22:05 63 17 123/57 97 05/11/23 20:46 65 19 117/64 95 05/11/23 18:22 97.9 F 95 20 115/52 05/11/23 17:07 98 F 65 16 106/56 05/11/23 14:39 98.9 F 72 18 111/61 05/11/23 14:00 74 18 133/55 95 05/11/23 13:00 75 18 124/68 96 05/11/23 11:37 98.7 F 82 20 88/62 89 L Intake and Output 05/11/23 05/11/23 05/12/23 14:59 22:59 06:59 Other: Voiding Method Toilet Weight 89.358 kg 89.358 kg Results CBC & Chem 7: 05/11/23 11:58 05/11/23 11:58 Labs: Abnormal Lab Results - Last 24 Hours (Table) 05/11/23 05/11/23 05/11/23 Range/Units 11:58 11:58 11:58 WBC 16.8 H (3.8-10.6) k/uL Neutrophils # 15.1 H (1.3-7.7) k/uL Lymphocytes # 0.7 L (1.0-4.8) k/uL PT 12.8 H (10.0-12.5) sec INR 1.2 H (<1.2) VBG pH (7.31-7.41) VBG pCO2 (37-51) mmHg VBG HCO3 (24-28) mmol/L Chloride (98-107) mmol/L Carbon Dioxide (22-30) mmol/L BUN (7-17) mg/dL Creatinine (0.52-1.04) mg/dL Glucose (74-99) mg/dL Plasma Lactic Acid Clark (0.7-2.0) mmol/L Magnesium (1.6-2.3) mg/dL Total Bilirubin (0.2-1.3) mg/dL AST (14-36) U/L ALT (4-34) U/L Alkaline Phosphatase (38-126) U/L Troponin I (0.000-0.034) ng/mL Albumin (3.5-5.0) g/dL Urine Appearance Cloudy H (Clear) Urine Protein 2+ H (Negative) Urine Glucose (UA) Trace H (Negative) Urine Blood Moderate H (Negative) Urine Bacteria Rare H (None) /hpf Hyaline Casts 10 H (0-2) /lpf Urine Mucus Moderate H (None) /hpf 05/11/23 05/11/23 05/11/23 Range/Units 11:58 11:58 11:58 WBC (3.8-10.6) k/uL Neutrophils # (1.3-7.7) k/uL Lymphocytes # (1.0-4.8) k/uL PT (10.0-12.5) sec INR (<1.2) VBG pH (7.31-7.41) VBG pCO2 (37-51) mmHg VBG HCO3 (24-28) mmol/L Chloride 114 H (98-107) mmol/L Carbon Dioxide 12 L (22-30) mmol/L BUN 18 H (7-17) mg/dL Creatinine 1.13 H (0.52-1.04) mg/dL Glucose 167 H (74-99) mg/dL Plasma Lactic Acid Clark 2.9 H* (0.7-2.0) mmol/L Magnesium 1.3 L (1.6-2.3) mg/dL Total Bilirubin 2.1 H (0.2-1.3) mg/dL AST 69 H (14-36) U/L ALT 36 H (4-34) U/L Alkaline Phosphatase 159 H (38-126) U/L Troponin I 0.061 H* (0.000-0.034) ng/mL Albumin 3.1 L (3.5-5.0) g/dL Urine Appearance (Clear) Urine Protein (Negative) Urine Glucose (UA) (Negative) Urine Blood (Negative) Urine Bacteria (None) /hpf Hyaline Casts (0-2) /lpf Urine Mucus (None) /hpf 05/11/23 05/11/23 05/11/23 Range/Units 14:47 18:25 20:33 WBC (3.8-10.6) k/uL Neutrophils # (1.3-7.7) k/uL Lymphocytes # (1.0-4.8) k/uL PT (10.0-12.5) sec INR (<1.2) VBG pH 7.44 H (7.31-7.41) VBG pCO2 29 L (37-51) mmHg VBG HCO3 20 L (24-28) mmol/L Chloride (98-107) mmol/L Carbon Dioxide (22-30) mmol/L BUN (7-17) mg/dL Creatinine (0.52-1.04) mg/dL Glucose (74-99) mg/dL Plasma Lactic Acid Clark (0.7-2.0) mmol/L Magnesium (1.6-2.3) mg/dL Total Bilirubin (0.2-1.3) mg/dL AST (14-36) U/L ALT (4-34) U/L Alkaline Phosphatase (38-126) U/L Troponin I 0.078 H* 0.065 H* (0.000-0.034) ng/mL Albumin (3.5-5.0) g/dL Urine Appearance (Clear) Urine Protein (Negative) Urine Glucose (UA) (Negative) Urine Blood (Negative) Urine Bacteria (None) /hpf Hyaline Casts (0-2) /lpf Urine Mucus (None) /hpf Thrombosis Risk Factor Assmnt - Choose All That Apply Any of the Below Risk Factors Present?: Yes Each Factor Represents 1 point: Obesity (BMI >25) Each Risk Factor Represents 3 Points: Age 75 years or older Thrombosis Risk Factor Assessment Total Risk Factor Score: 4 Thrombosis Risk Factor Assessment Level: Moderate Risk
[2023-05-12] MEDS: PANTOPRAZOLE 40 MG TABLET PO SCH (06:23)
[2023-05-12] MEDS: SODIUM CHLORIDE 0.9% 1,000 ML IV SCH ×2 (06:24→17:11)
[2023-05-12] MEDS: ENOXAPARIN 40 MG/0.4 ML SYRINGE SQ SCH (09:08)
[2023-05-12] MEDS: atenoloL 50 MG TAB PO SCH (09:08)
[2023-05-12] MEDS: amLODIPine 5 MG TAB PO SCH (09:10)
[2023-05-12] MEDS: CHOLECALCIFEROL 25 MCG (1000 IU) TABLET PO SCH (09:10)
[2023-05-12] MEDS: ATORVASTATIN 10 MG TAB PO SCH (09:10)
[2023-05-12] MEDS: KETOROLAC 0.5% OPHTH DROPS 5 ML BTL RIGHT EYE SCH ×2 (09:11→22:49)
[2023-05-12] MEDS: ursodioL 300 MG CAP PO SCH ×2 (09:11→22:49)
[2023-05-12] MEDS: azaTHIOprine 50 MG TAB PO SCH (09:11)
[2023-05-12] MEDS: prednisoLONE ACETATE 1% OPHTH DROPS 5 ML BTL RIGHT EYE SCH ×2 (09:15→22:49)
[2023-05-12 09:28] LABS: HCT 40.1 % (34.0-46.0); HGB 13.1 gm/dL (11.4-16.0); Hypochromasia Slight; MCH 30.2 pg (25.0-35.0); MCHC 32.6 g/dL (31.0-37.0); MCV 92.5 fL (80.0-100.0); Mean Platelet Volume 8.7; Platelet Count 229 k/uL (150-450); RBC 4.34 m/uL (3.80-5.40); RDW 13.5 % (11.5-15.5); WBC 18.2 k/uL (3.8-10.6)
[2023-05-12 09:42] LABS: ALT 45 U/L (4-34); AST 92 U/L (14-36); African American GFR (CKD) 79 (>60 ml/min/1.73 sqM); Albumin 2.8 g/dL (3.5-5.0); Alkaline Phosphatase 131 U/L (38-126); Anion Gap 11 mmol/L; Blood Urea Nitrogen 22 mg/dL (7-17); Calcium 8.6 mg/dL (8.4-10.2); Carbon Dioxide 17 mmol/L (22-30); Chloride 114 mmol/L (98-107); Glucose 104 mg/dL (74-99); Non-African American GFR(CKD) 68 (>60 ml/min/1.73 sqM); Potassium 3.5 mmol/L (3.5-5.1); Sodium 142 mmol/L (137-145); Total Bilirubin 1.1 mg/dL (0.2-1.3); Total Protein 5.8 g/dL (6.3-8.2)
[2023-05-12 11:51] VITALS: RESP 18
--- NOTE | 2023-05-12 12:12 | P.PN ---
Subjective Progress Note Date: 05/12/23 Hospital Course: 77-year-old female with a PMH of hypertension, s/p liver transplant 23 years ago (doesn't recall why), who presents to the emergency room with complaints of generalized weakness and diarrhea. She claims that her symptoms have been ongoing for 1 week. She has not been able to eat and drink very well. On presentation, patient was hypotensive, received IV fluids. Her blood pressure improved. CT abdomen and pelvis in the emergency room revealed a 4.3 cm mass- like area hypertension with large hiatal hernia. Chest x-ray revealed findings of arterial hypertension. EKG reveals sinus rhythm at 81 bpm with T-wave inversion in leads V2 with flattening in lead V3 with no additional ST/T-wave changes noted. Laboratory evaluation was remarkable for leukocytosis of 16.8, CO2 12, BUN 18, creatinine 1.13, lactic acid 2.9, magnesium 1.3, AST 69, ALT 36, troponin 0.061 with a viral respiratory panel negative. Blood cultures were obtained. C. diff was negative. Patient admitted for dehydration and likely viral gastroenteritis. Subjective: Patient seen and examined at bedside. No acute events overnight. Diarrhea is resolving. Overall she is feeling a lot better. Pertinent positives and negatives as discussed above, a complete review of systems was performed and all other systems are negative. Vitals Signs Reviewed. General: nontoxic, no distress, appears at stated age Derm: warm, dry Head: atraumatic, normocephalic, symmetric Eyes: EOMI, no lid lag, anicteric sclera Mouth: no lip lesion, mucus membranes moist Cardiovascular: S1S2 reg, no murmur Lungs: CTA bilateral, no rhonchi, no rales , no accessory muscle use Abdominal: soft, nontender to palpation, no guarding, no appreciable organomegaly Ext: no gross muscle atrophy, no edema, no contractures Neuro: CN II-XI grossly intact, no focal neuro deficits Psych: Alert, oriented, appropriate affect Data Reviewed Today: Pertinent Labs: WBC 18.2, bicarb 17, creatinine 0.84, lactate 1.3, troponin peaked at 0.078, total bilirubin 1.1, AST 92, ALT 45, ALP 131, magnesium 1.6 Imaging: No new imaging Assessment and Plan: Patient is severely ill, needs close monitoring, prognosis guarded. Active: Severe dehydration Viral gastroenteritis Leukocytosis Hypotension, resolved Acute kidney injury, resolved Hypomagnesemia, resolved Metabolic acidosis, resolving Transaminitis NSTEMI, type 2 -Continue normal saline 75 mL an hour -Patient is improving with IV fluids -Stool lactoferrin and calprotectin pending -Blood cultures pending -Repeat CBC and BMP tomorrow -PT consult Chronic: History of hypertension Status post liver transplant, immunocompromised Dyslipidemia GERD DVT ppx: Lovenox Code status: Full code Anticipated discharge place: Likely home Anticipated discharge time: 1-2 days Objective - Vital Signs Vital signs: Vital Signs Temp 98.2 F 05/12/23 11:47 Pulse 80 05/12/23 11:47 Resp 18 05/12/23 11:47 BP 156/84 05/12/23 11:47 Pulse Ox 93 L 05/12/23 11:47 FiO2 Intake & Output 05/11/23 05/12/23 05/12/23 18:59 06:59 18:59 Intake Total 540 118 Balance 540 118 Weight 89.358 kg 89.358 kg Intake: Oral 540 118 Other: Voiding Method Toilet Toilet # Voids 1 1 # Bowel Movements 1 - Labs CBC & Chem 7: 05/12/23 08:22 05/12/23 08:22 Labs: Abnormal Lab Results - Last 24 Hours (Table) 05/11/23 05/11/23 05/11/23 Range/Units 11:58 11:58 11:58 WBC 16.8 H (3.8-10.6) k/uL Neutrophils # 15.1 H (1.3-7.7) k/uL Lymphocytes # 0.7 L (1.0-4.8) k/uL PT 12.8 H (10.0-12.5) sec INR 1.2 H (<1.2) VBG pH (7.31-7.41) VBG pCO2 (37-51) mmHg VBG HCO3 (24-28) mmol/L Chloride (98-107) mmol/L Carbon Dioxide (22-30) mmol/L BUN (7-17) mg/dL Creatinine (0.52-1.04) mg/dL Glucose (74-99) mg/dL Plasma Lactic Acid Clark (0.7-2.0) mmol/L Magnesium (1.6-2.3) mg/dL Total Bilirubin (0.2-1.3) mg/dL AST (14-36) U/L ALT (4-34) U/L Alkaline Phosphatase (38-126) U/L Troponin I (0.000-0.034) ng/mL Total Protein (6.3-8.2) g/dL Albumin (3.5-5.0) g/dL Urine Appearance Cloudy H (Clear) Urine Protein 2+ H (Negative) Urine Glucose (UA) Trace H (Negative) Urine Blood Moderate H (Negative) Urine Bacteria Rare H (None) /hpf Hyaline Casts 10 H (0-2) /lpf Urine Mucus Moderate H (None) /hpf 05/11/23 05/11/23 05/11/23 Range/Units 11:58 11:58 11:58 WBC (3.8-10.6) k/uL Neutrophils # (1.3-7.7) k/uL Lymphocytes # (1.0-4.8) k/uL PT (10.0-12.5) sec INR (<1.2) VBG pH (7.31-7.41) VBG pCO2 (37-51) mmHg VBG HCO3 (24-28) mmol/L Chloride 114 H (98-107) mmol/L Carbon Dioxide 12 L (22-30) mmol/L BUN 18 H (7-17) mg/dL Creatinine 1.13 H (0.52-1.04) mg/dL Glucose 167 H (74-99) mg/dL Plasma Lactic Acid Clark 2.9 H* (0.7-2.0) mmol/L Magnesium 1.3 L (1.6-2.3) mg/dL Total Bilirubin 2.1 H (0.2-1.3) mg/dL AST 69 H (14-36) U/L ALT 36 H (4-34) U/L Alkaline Phosphatase 159 H (38-126) U/L Troponin I 0.061 H* (0.000-0.034) ng/mL Total Protein (6.3-8.2) g/dL Albumin 3.1 L (3.5-5.0) g/dL Urine Appearance (Clear) Urine Protein (Negative) Urine Glucose (UA) (Negative) Urine Blood (Negative) Urine Bacteria (None) /hpf Hyaline Casts (0-2) /lpf Urine Mucus (None) /hpf 05/11/23 05/11/23 05/11/23 Range/Units 14:47 18:25 20:33 WBC (3.8-10.6) k/uL Neutrophils # (1.3-7.7) k/uL Lymphocytes # (1.0-4.8) k/uL PT (10.0-12.5) sec INR (<1.2) VBG pH 7.44 H (7.31-7.41) VBG pCO2 29 L (37-51) mmHg VBG HCO3 20 L (24-28) mmol/L Chloride (98-107) mmol/L Carbon Dioxide (22-30) mmol/L BUN (7-17) mg/dL Creatinine (0.52-1.04) mg/dL Glucose (74-99) mg/dL Plasma Lactic Acid Clark (0.7-2.0) mmol/L Magnesium (1.6-2.3) mg/dL Total Bilirubin (0.2-1.3) mg/dL AST (14-36) U/L ALT (4-34) U/L Alkaline Phosphatase (38-126) U/L Troponin I 0.078 H* 0.065 H* (0.000-0.034) ng/mL Total Protein (6.3-8.2) g/dL Albumin (3.5-5.0) g/dL Urine Appearance (Clear) Urine Protein (Negative) Urine Glucose (UA) (Negative) Urine Blood (Negative) Urine Bacteria (None) /hpf Hyaline Casts (0-2) /lpf Urine Mucus (None) /hpf 05/12/23 05/12/23 Range/Units 08:22 08:22 WBC 18.2 H (3.8-10.6) k/uL Neutrophils # (1.3-7.7) k/uL Lymphocytes # (1.0-4.8) k/uL PT (10.0-12.5) sec INR (<1.2) VBG pH (7.31-7.41) VBG pCO2 (37-51) mmHg VBG HCO3 (24-28) mmol/L Chloride 114 H (98-107) mmol/L Carbon Dioxide 17 L (22-30) mmol/L BUN 22 H (7-17) mg/dL Creatinine (0.52-1.04) mg/dL Glucose 104 H (74-99) mg/dL Plasma Lactic Acid Clark (0.7-2.0) mmol/L Magnesium (1.6-2.3) mg/dL Total Bilirubin (0.2-1.3) mg/dL AST 92 H (14-36) U/L ALT 45 H (4-34) U/L Alkaline Phosphatase 131 H (38-126) U/L Troponin I (0.000-0.034) ng/mL Total Protein 5.8 L (6.3-8.2) g/dL Albumin 2.8 L (3.5-5.0) g/dL Urine Appearance (Clear) Urine Protein (Negative) Urine Glucose (UA) (Negative) Urine Blood (Negative) Urine Bacteria (None) /hpf Hyaline Casts (0-2) /lpf Urine Mucus (None) /hpf
[2023-05-12] MEDS: SIROLIMUS 1 MG PO SCH (12:33)
[2023-05-12] MEDS: CEFEPIME 2 GM in SODIUM CHLORIDE 0.9% 100 ML IVPB SCH ×2 (18:27→23:18)
[2023-05-13 08:18] LABS: Basophils % (A) 0 %; Eosinophils # (A) 0.1 k/uL (0-0.7); Eosinophils % (A) 0 %; HCT 39.7 % (34.0-46.0); HGB 13.3 gm/dL (11.4-16.0); Lymphocytes % (A) 7 %; MCH 30.2 pg (25.0-35.0); MCHC 33.6 g/dL (31.0-37.0); Monocytes # (A) 0.5 k/uL (0-1.0); Monocytes % (A) 4 %; Neutrophils # (A) 11.7 k/uL (1.3-7.7); Neutrophils % (A) 87 %; Platelet Count 162 k/uL (150-450); RBC 4.41 m/uL (3.80-5.40); RDW 13.5 % (11.5-15.5); WBC 13.4 k/uL (3.8-10.6)
[2023-05-13 08:22] LABS: ALT 46 U/L (4-34); AST 80 U/L (14-36); African American GFR (CKD) 85 (>60 ml/min/1.73 sqM); Albumin 2.6 g/dL (3.5-5.0); Alkaline Phosphatase 127 U/L (38-126); Anion Gap 9 mmol/L; Blood Urea Nitrogen 22 mg/dL (7-17); Calcium 8.7 mg/dL (8.4-10.2); Carbon Dioxide 20 mmol/L (22-30); Chloride 113 mmol/L (98-107); Glucose 140 mg/dL (74-99); Non-African American GFR(CKD) 74 (>60 ml/min/1.73 sqM); Potassium 3.4 mmol/L (3.5-5.1); Sodium 142 mmol/L (137-145); Total Bilirubin 1.1 mg/dL (0.2-1.3); Total Protein 5.4 g/dL (6.3-8.2)
[2023-05-13] MEDS ORDERED: POTASSIUM CHLORIDE ER 20 MEQ TAB.ER PO STA (08:26)
[2023-05-13] MEDS: atenoloL 50 MG TAB PO SCH (08:38)
[2023-05-13] MEDS: amLODIPine 5 MG TAB PO SCH (08:38)
[2023-05-13] MEDS: CEFEPIME 2 GM in SODIUM CHLORIDE 0.9% 100 ML IVPB SCH ×2 (08:40→15:41)
[2023-05-13] MEDS: PANTOPRAZOLE 40 MG TABLET PO SCH (08:40)
[2023-05-13] MEDS: ATORVASTATIN 10 MG TAB PO SCH (08:40)
[2023-05-13] MEDS: ENOXAPARIN 40 MG/0.4 ML SYRINGE SQ SCH (08:41)
[2023-05-13] MEDS: KETOROLAC 0.5% OPHTH DROPS 5 ML BTL RIGHT EYE SCH ×2 (08:41→20:48)
[2023-05-13] MEDS: prednisoLONE ACETATE 1% OPHTH DROPS 5 ML BTL RIGHT EYE SCH ×2 (08:42→20:49)
[2023-05-13] MEDS: CHOLECALCIFEROL 25 MCG (1000 IU) TABLET PO SCH (08:49)
[2023-05-13] MEDS: ursodioL 300 MG CAP PO SCH ×2 (08:49→20:48)
[2023-05-13] MEDS: azaTHIOprine 50 MG TAB PO SCH (08:51)
[2023-05-13] MEDS: SIROLIMUS 1 MG PO SCH ×2 (09:21→09:42)
--- NOTE | 2023-05-13 12:06 | P.PN ---
Subjective Progress Note Date: 05/13/23 Hospital Course: 77-year-old female with a PMH of hypertension, s/p liver transplant 23 years ago (doesn't recall why), who presents to the emergency room with complaints of generalized weakness and diarrhea. She claims that her symptoms have been ongoing for 1 week. She has not been able to eat and drink very well. On presentation, patient was hypotensive, received IV fluids. Her blood pressure improved. CT abdomen and pelvis in the emergency room revealed a 4.3 cm mass- like area hypertension with large hiatal hernia. Chest x-ray revealed findings of arterial hypertension. EKG reveals sinus rhythm at 81 bpm with T-wave inversion in leads V2 with flattening in lead V3 with no additional ST/T-wave changes noted. Laboratory evaluation was remarkable for leukocytosis of 16.8, CO2 12, BUN 18, creatinine 1.13, lactic acid 2.9, magnesium 1.3, AST 69, ALT 36, troponin 0.061 with a viral respiratory panel negative. Blood cultures were obtained. C. diff was negative. Patient admitted for dehydration and sepsis. Patient currently on IV antibiotics. Subjective: Patient seen and examined at bedside. She did have multiple episodes of fevers yesterday. Diarrhea is resolving. Denies any complaints at the moment. Pertinent positives and negatives as discussed above, a complete review of systems was performed and all other systems are negative. Vitals Signs Reviewed. General: nontoxic, no distress, appears at stated age Derm: warm, dry Head: atraumatic, normocephalic, symmetric Eyes: EOMI, no lid lag, anicteric sclera Mouth: no lip lesion, mucus membranes moist Cardiovascular: S1S2 reg, no murmur Lungs: CTA bilateral, no rhonchi, no rales , no accessory muscle use Abdominal: soft, nontender to palpation, no guarding, no appreciable organomegaly Ext: no gross muscle atrophy, no edema, no contractures Neuro: CN II-XI grossly intact, no focal neuro deficits Psych: Alert, oriented, appropriate affect Data Reviewed Today: Pertinent Labs: WBC 13.4, potassium 3.4, creatinine 0.79, bicarbs 20 Imaging: No new imaging Assessment and Plan: Patient is severely ill, needs close monitoring, prognosis guarded. Active: Sepsis, unclear source Severe dehydration Suspected Viral gastroenteritis Leukocytosis, resolving Hypotension, resolved Acute kidney injury, resolved Hypomagnesemia, resolved Metabolic acidosis, resolving Transaminitis NSTEMI, type 2 -Due to patient being immunocompromised as well as persistent fevers, patient started on cefepime 2 g IV every 8 hours -Consider ID consult if still having fevers -Continue normal saline 75 mL an hour -Patient is improving with IV fluids -Stool lactoferrin and calprotectin pending -Blood cultures no growth to date -Repeat CBC and BMP tomorrow -PT consult Chronic: History of hypertension Status post liver transplant, immunocompromised Dyslipidemia GERD DVT ppx: Lovenox Code status: Full code Anticipated discharge place: Likely home Anticipated discharge time: 1-2 days Objective - Vital Signs Vital signs: Vital Signs Temp 99.8 F H 05/13/23 08:00 Pulse 92 05/13/23 08:00 Resp 18 05/13/23 08:00 BP 162/83 05/13/23 08:00 Pulse Ox 93 L 05/13/23 08:53 FiO2 Intake & Output 05/12/23 05/13/23 05/13/23 18:59 06:59 18:59 Intake Total 118 358 Balance 118 358 Intake: Oral 118 358 Other: Voiding Method Toilet Toilet Toilet # Voids 3 2 # Bowel Movements 1 - Labs CBC & Chem 7: 05/13/23 07:28 05/13/23 07:28 Labs: Abnormal Lab Results - Last 24 Hours (Table) 05/13/23 05/13/23 Range/Units 07:28 07:28 WBC 13.4 H (3.8-10.6) k/uL Neutrophils # 11.7 H (1.3-7.7) k/uL Potassium 3.4 L (3.5-5.1) mmol/L Chloride 113 H (98-107) mmol/L Carbon Dioxide 20 L (22-30) mmol/L BUN 22 H (7-17) mg/dL Glucose 140 H (74-99) mg/dL AST 80 H (14-36) U/L ALT 46 H (4-34) U/L Alkaline Phosphatase 127 H (38-126) U/L Total Protein 5.4 L (6.3-8.2) g/dL Albumin 2.6 L (3.5-5.0) g/dL Microbiology - Last 24 Hours (Table) 05/11/23 18:35 Blood Culture - Preliminary Blood 05/11/23 18:29 Blood Culture - Preliminary Blood
[2023-05-13] MEDS: SODIUM CHLORIDE 0.9% 1,000 ML IV SCH ×2 (15:41→20:50)
[2023-05-13] MEDS: LOPERAMIDE 2 MG CAP PO PRN (18:21)
[2023-05-14] MEDS: CEFEPIME 2 GM in SODIUM CHLORIDE 0.9% 100 ML IVPB SCH ×2 (00:19→09:38)
[2023-05-14] MEDS: PANTOPRAZOLE 40 MG TABLET PO SCH (05:13)
[2023-05-14] MEDS: LOPERAMIDE 2 MG CAP PO PRN (05:14)
[2023-05-14 06:55] VITALS: PULSE 70
[2023-05-14 09:15] LABS: African American GFR (CKD) 86 (>60 ml/min/1.73 sqM); Anion Gap 8 mmol/L; Blood Urea Nitrogen 19 mg/dL (7-17); Calcium 8.5 mg/dL (8.4-10.2); Carbon Dioxide 16 mmol/L (22-30); Chloride 115 mmol/L (98-107); Glucose 132 mg/dL (74-99); Magnesium 1.5 mg/dL (1.6-2.3); Non-African American GFR(CKD) 75 (>60 ml/min/1.73 sqM); Sodium 139 mmol/L (137-145)
[2023-05-14] MEDS: azaTHIOprine 50 MG TAB PO SCH (09:36)
[2023-05-14] MEDS: atenoloL 50 MG TAB PO SCH (09:36)
[2023-05-14] MEDS: ursodioL 300 MG CAP PO SCH (09:36)
[2023-05-14] MEDS: KETOROLAC 0.5% OPHTH DROPS 5 ML BTL RIGHT EYE SCH (09:37)
[2023-05-14] MEDS: SIROLIMUS 1 MG PO SCH (09:37)
[2023-05-14] MEDS: ATORVASTATIN 10 MG TAB PO SCH (09:37)
[2023-05-14] MEDS: prednisoLONE ACETATE 1% OPHTH DROPS 5 ML BTL RIGHT EYE SCH (09:37)
[2023-05-14] MEDS: CHOLECALCIFEROL 25 MCG (1000 IU) TABLET PO SCH (09:37)
[2023-05-14] MEDS: amLODIPine 5 MG TAB PO SCH (09:37)
[2023-05-14] MEDS: ENOXAPARIN 40 MG/0.4 ML SYRINGE SQ SCH (09:37)
[2023-05-14 10:40] LABS: Basophils % (A) 0 %; Eosinophils # (A) 0.2 k/uL (0-0.7); Eosinophils % (A) 1 %; HCT 38.9 % (34.0-46.0); HGB 13.2 gm/dL (11.4-16.0); Lymphocytes # (A) 1.5 k/uL (1.0-4.8); Lymphocytes % (A) 10 %; MCH 30.4 pg (25.0-35.0); MCHC 33.9 g/dL (31.0-37.0); MCV 89.8 fL (80.0-100.0); Monocytes # (A) 0.8 k/uL (0-1.0); Monocytes % (A) 5 %; Neutrophils # (A) 11.8 k/uL (1.3-7.7); Neutrophils % (A) 81 %; Platelet Count 171 k/uL (150-450); RBC 4.34 m/uL (3.80-5.40); RDW 13.4 % (11.5-15.5); WBC 14.5 k/uL (3.8-10.6)
[2023-05-14 11:25] VITALS: BP 172/81; TEMP 98.3
--- NOTE | 2023-05-14 14:10 | P.DS ---
Providers Date of admission: 05/11/23 16:21 Expected date of discharge: 05/14/23 Attending physician: Edwardo Kim MD Primary care physician: Elsa Jang MD Hospital Course: Sepsis Severe dehydration Viral gastroenteritis Acute kidney injury, resolved NSTEMI, type 2 History of hypertension Status post liver transplant, immunocompromised Dyslipidemia GERD Hospital Course: 77-year-old female with a PMH of hypertension, s/p liver transplant 23 years ago (doesn't recall why), who presents to the emergency room with complaints of generalized weakness and diarrhea. She claims that her symptoms have been ongoing for 1 week. She has not been able to eat and drink very well. On presentation, patient was hypotensive, received IV fluids. Her blood pressure improved. CT abdomen and pelvis in the emergency room revealed a 4.3 cm mass- like area hypertension with large hiatal hernia. Chest x-ray revealed findings of arterial hypertension. EKG reveals sinus rhythm at 81 bpm with T-wave inversion in leads V2 with flattening in lead V3 with no additional ST/T-wave changes noted. Laboratory evaluation was remarkable for leukocytosis of 16.8, CO2 12, BUN 18, creatinine 1.13, lactic acid 2.9, magnesium 1.3, AST 69, ALT 36, troponin 0.061 with a viral respiratory panel negative. Blood cultures were obtained. C. diff was negative. Patient admitted for dehydration and sepsis. On day of discharge, patient noted to me that her diarrhea had been improving down to 2-3 times daily with less than half a glass full of stool per occurrence which was significantly better than admission, however, upon starting antib iotics, the composition and frequency of her stools increased. She denies any further evidence of fevers. On the day of discharge, patient was advised to follow-up with her primary care physician and that antibiotics will be discontinued secondary to the presumption of viral gastroenteritis. 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 This was written in patient's discharge instructions as well. Patient will follow-up with primary care. I spent 38 minutes coordinating this discharge on 05/14 Patient Condition at Discharge: Good Plan - Discharge Summary Discharge Rx Participant: No New Discharge Prescriptions: New Acetaminophen Tab [Tylenol] 650 mg PO Q6HR PRN tab PRN Reason: Mild Pain Or Fever > 100.5 Continue prednisoLONE ACETATE 1% OPHTH [Pred Forte 1%] 1 drop RIGHT EYE BID ursodioL [Ursodiol] 300 mg PO BID Omeprazole [PriLOSEC] 20 mg PO DAILY Atorvastatin [Lipitor] 10 mg PO DAILY amLODIPine [Norvasc] 5 mg PO DAILY Ketorolac 0.5% Ophth Soln [Acular 0.5%] 1 drop RIGHT EYE BID Sirolimus 1 mg PO DAILY Cholecalciferol [Vitamin D3 (25 Mcg = 1000 Iu)] 50 mcg PO DAILY azaTHIOprine [Imuran] 50 mg PO DAILY atenoloL [Tenormin] 75 mg PO DAILY Discharge Medication List Atorvastatin [Lipitor] 10 mg PO DAILY 05/11/23 [History] Cholecalciferol [Vitamin D3 (25 Mcg = 1000 Iu)] 50 mcg PO DAILY 05/11/23 [History] Ketorolac 0.5% Ophth Soln [Acular 0.5%] 1 drop RIGHT EYE BID 05/11/23 [History] Omeprazole [PriLOSEC] 20 mg PO DAILY 05/11/23 [History] Sirolimus 1 mg PO DAILY 05/11/23 [History] amLODIPine [Norvasc] 5 mg PO DAILY 05/11/23 [History] atenoloL [Tenormin] 75 mg PO DAILY 05/11/23 [History] azaTHIOprine [Imuran] 50 mg PO DAILY 05/11/23 [History] prednisoLONE ACETATE 1% OPHTH [Pred Forte 1%] 1 drop RIGHT EYE BID 05/11/23 [History] ursodioL [Ursodiol] 300 mg PO BID 05/11/23 [History] Acetaminophen Tab [Tylenol] 650 mg PO Q6HR PRN tab 05/14/23 [Rx] Follow up Appointment(s)/Referral(s): Elsa Jang MD [Primary Care Provider] - 1-2 days (Office will call to set up a follow-up appointment.) Activity/Diet/Wound Care/Special Instructions: For your Diarrhea: Return to the ER if you have worsening fevers, chills, sweats, worsening diarrhea, or dehydration. Please follow this up in the office with your primary care doctor. For symptomatic control, use pepto-bismol. Focus on staying hydrated and maintaining nutrition. Pedialyte or sugar free gatorade can be used to replace electrolyte losses. For the 4.3cm hepatic lobe mass: This will need to be evaluated with MRI (with and without contrast) - it is best that you address this with your transplant physician at [facility] as soon as possible for appropriate workup. This was discussed with your primary care physician. Discharge Disposition: HOME SELF-CARE
== END 2023-05-14 13:39 | disposition home or self-care (01) | DRG 871 ==
LOC: EC 11:35 → 3SCARD 16:21
PROVIDERS: ADMIT Student in an Organized Health Care Education/Training Program; ATTEND Student in an Organized Health Care Education/Training Program
DX: A41.9 Sepsis, unspecified organism (principal); I21.A1 Myocardial infarction type 2; D84.821 Immunodeficiency due to drugs; N17.9 Acute kidney failure, unspecified; Z94.4 Liver transplant status; Z11.52 Encounter for screening for COVID-19; E87.4 Mixed disorder of acid-base balance; D84.9 Immunodeficiency, unspecified; E87.20 Acidosis, unspecified; R53.1 Weakness; A08.4 Viral intestinal infection, unspecified; E86.0 Dehydration; E83.42 Hypomagnesemia; E78.5 Hyperlipidemia, unspecified; I10 Essential (primary) hypertension; I27.21 Secondary pulmonary arterial hypertension; K21.9 Gastro-esophageal reflux disease without esophagitis; K44.9 Diaphragmatic hernia without obstruction or gangrene; R09.02 Hypoxemia; Z79.624 Long term (current) use of inhibitors of nucleotide synthesis; Z79.899 Other long term (current) drug therapy; X58.XXXA Exposure to other specified factors, initial encounter
CPT/HCPCS: 36415; 71046; 74176; 80048; 80053; 81001; 82803; 83605; 83735; 84484; 85025; 85027; 85610; 85730; 87040; 87324; 87636; 93005; 94760; 96360; 96361; 99285

== ENCOUNTER 2023-05-23 01:36 | Inpatient (IN) | payer MEDICARE, OTHER ==
[2023-05-23] MEDS ORDERED: ACETAMINOPHEN TAB 500 MG TAB PO STA (01:50)
[2023-05-23] MEDS ORDERED: SODIUM CHLORIDE 0.9% 2,000 ML IV STA (01:51)
[2023-05-23] MEDS ORDERED: VANCOMYCIN IV PER PHARMACY 1 EACH MISC MISCELLANE PRN (01:55)
[2023-05-23] MEDS ORDERED: PIPERACILLIN-TAZOBACTAM 3.375 GM in SODIUM CHLORIDE 0.9% 100 ML IVPB STA (01:55)
--- NOTE | 2023-05-23 02:01 | ED ---
General Adult HPI - General Chief complaint: Weakness Stated complaint: Weakness Time Seen by Provider: 05/23/23 01:39 Source: patient, EMS Mode of arrival: EMS - History of Present Illness Initial comments: 77-year-old female with a past medical history significant for liver transplant approximately 23 years ago on Imuran presenting to the ED with a chief complaint of fatigue and diarrhea. Patient was previously seen here for the same was admitted for dehydration and sepsis, and discharged on 05/14/2023. At this time, she did have a CT abdomen pelvis in the ED that report revealed a 4.3 cm mass like area. Ultimately, on day of discharge patient noted that her diarrhea at t his time had improved. Today, patient notes recurrence of these symptoms and additionally notes today that she is now having a fever as well. Currently denies chest pain or shortness of breath. No urinary symptoms. No other complaints at this time. - Related Data Home Medications Medication Instructions Recorded Confirmed Atorvastatin [Lipitor] 10 mg PO DAILY 05/11/23 05/23/23 Cholecalciferol [Vitamin D3 (25 50 mcg PO DAILY 05/11/23 05/23/23 Mcg = 1000 Iu)] Ketorolac 0.5% Ophth Soln [Acular 1 drop RIGHT EYE BID 05/11/23 05/23/23 0.5%] Omeprazole [PriLOSEC] 20 mg PO DAILY 05/11/23 05/23/23 Sirolimus 1 mg PO DAILY 05/11/23 05/23/23 amLODIPine [Norvasc] 5 mg PO DAILY 05/11/23 05/23/23 atenoloL [Tenormin] 75 mg PO DAILY 05/11/23 05/23/23 azaTHIOprine [Imuran] 50 mg PO DAILY 05/11/23 05/23/23 prednisoLONE ACETATE 1% OPHTH 1 drop RIGHT EYE BID 05/11/23 05/23/23 [Pred Forte 1%] ursodioL [Ursodiol] 300 mg PO BID 05/11/23 05/23/23 Previous Rx's Medication Instructions Recorded Acetaminophen Tab [Tylenol] 650 mg PO Q6HR PRN tab 05/14/23 Allergies Allergy/AdvReac Type Severity Reaction Status Date / Time No Known Allergies Allergy Verified 05/23/23 12:28 Review of Systems ROS Statement: Those systems with pertinent positive or pertinent negative responses have been documented in the HPI. ROS Other: All systems not noted in ROS Statement are negative. Past Medical History Past Medical History: Hypertension History of Any Multi-Drug Resistant Organisms: None Reported Additional Past Surgical History / Comment(s): liver transplant Past Anesthesia/Blood Transfusion Reactions: No Reported Reaction Past Psychological History: No Psychological Hx Reported Smoking Status: Never smoker Past Alcohol Use History: None Reported Past Drug Use History: None Reported General Exam General appearance: alert Eye exam: Present: normal appearance Neck exam: Present: normal inspection Respiratory exam: Present: normal lung sounds bilaterally Cardiovascular Exam: Present: tachycardia GI/Abdominal exam: Present: soft Neurological exam: Present: alert, oriented X3 Skin exam: Present: warm, dry Course Vital Signs 05/23/23 05/23/23 05/23/23 01:37 02:47 03:00 Temperature 101.0 F H 98.4 F Pulse Rate 98 88 89 Pulse Rate [ Pulse Oximetery ] Respiratory 24 22 18 Rate Blood Pressure 115/68 119/71 Blood Pressure [Right Arm] O2 Sat by Pulse 88 L 95 95 Oximetry 05/23/23 05/23/23 05/23/23 04:00 05:00 08:01 Temperature Pulse Rate 71 67 Pulse Rate [ 62 Pulse Oximetery ] Respiratory 22 20 16 Rate Blood Pressure 122/59 115/55 Blood Pressure 127/75 [Right Arm] O2 Sat by Pulse 95 95 Oximetry 05/23/23 05/23/23 05/23/23 10:00 11:00 15:41 Temperature 97.8 F Pulse Rate 56 L 55 L 66 Pulse Rate [ Pulse Oximetery ] Respiratory 19 16 18 Rate Blood Pressure 118/61 118/63 128/75 Blood Pressure [Right Arm] O2 Sat by Pulse 96 97 96 Oximetry Medical Decision Making - Medical Decision Making Was pt. sent in by a medical professional or institution (, PA, [employer] TWISTER W[employer]ER, urgent care, hospital, or long-term...) When possible be specific @ -No Did you speak to anyone other than the patient for history (EMS, parent, family, police, friend...)? What history was obtained from this source @ -No Did you review nursing and triage notes (agree or disagree)? Why? @ -I reviewed and agree with nursing and triage notes Were old charts reviewed (outside hosp., previous admission, EMS record, old EKG, old radiological studies, urgent care reports/EKG's, long-term records)? Report findings @ -Yes, prior visit and recent discharge reviewed. For further details please see HPI. Differential Diagnosis (chest pain, altered mental status, abdominal pain women, abdominal pain men, vaginal bleeding, weakness, fever, dyspnea, syncope, headache, dizziness, GI bleed, back pain, seizure, CVA, palpatations, mental health, musculoskeletal)? @ -Differential Fever: Pneumonia, viral URI, endocarditis, myocarditis, pericarditis, otitis, sinusitis, peritonsillar Abscess, retropharyngeal Abscess, epiglottitis, peritonitis, appendicitis, Cait cystitis, diverticulitis, hepatitis, colitis, UTI, PID, TOA, pyelonephritis, prostatitis, epididymitis, meningitis, encephalitis, pulmonary embolism, CVA, thyroid storm, pancreatitis, adrenal crisis, cavernous sinus thrombosis, this is not meant to be an all-inclusive list. EKG interpreted by me (3pts min.). @ -As above X-rays interpreted by me (1pt min.). @ -Pending interpretation by radiology. CT interpreted by me (1pt min.). @ -None done U/S interpreted by me (1pt. min.). @ -None done What testing was considered but not performed or refused? (CT, X-rays, U/S, labs)? Why? @ -None What meds were considered but not given or refused? Why? @ -None Did you discuss the management of the patient with other professionals (professionals i.e. , PA, [employer] W[employer]ER, lab, RT, psych nurse, criminal justice social worker, manufacturing industrial engineer, teacher, child support case officer, upper caser)? Give summary @ -No Was smoking cessation discussed for >3mins.? @ -No Was critical care preformed (if so, how long)? @ -No Were there social determinants of health that impacted care today? How? (Homelessness, low income, unemployed, alcoholism, drug addiction, trans portation, low edu. Level, literacy, decrease access to med. care, assisted, rehab)? @ -No Was there de-escalation of care discussed even if they declined (Discuss DNR or withdrawal of care, Hospice)? DNR status @ -No What co-morbidities impacted this encounter? (DM, HTN, Smoking, COPD, CAD, Cancer, CVA, ARF, Chemo, Hep., AIDS, mental health diagnosis, sleep apnea, morbid obesity)? @ -None Was patient admitted / discharged? Hospital course, mention meds given and route, prescriptions, significant lab abnormalities, going to OR and other pertinent info. @ -Pending 77-year-old female presenting to the ED with complaints of generalized fatigue and diarrhea. Patient recently discharged from this facility for the same. Today, notes onset of same symptoms in addition to a fever. Laboratory studies reviewed. Labs significant for an elevated white blood cell count at 22.1, neutrophils elevated at 21.2. Lactic acid is elevated at 2.9 and also noted to have elevation in troponin at 0.226. At this time the remainder of the workup including UA and chest x-ray is pending. Case signed out to my attending Dr. Adhikari for further disposition. Was critical care preformed (if so, how long)? @ -Yes, 30 minutes Was patient admitted / discharged? Hospital course, mention meds given and route, prescriptions, significant lab abnormalities, going to OR and other pertinent info. @ -Admission 77-year-old female history of liver transplant currently on immunosuppressive's presenting to the ED with 1 day history of generalized weakness, diarrhea, and fever. Labs as above. Additionally did have hypokalemia at 3 which was supplemented here in the ED. Patient admitted secondary to acute hypoxic respiratory failure, sepsis, and hypokalemia. Consult placed to infectious disease and cardiology. Undiagnosed new problem with uncertain prognosis? @ -[No] Drug Therapy requiring intensive monitoring for toxicity (Heparin, Nitro, Insulin, Cardizem)? @ -[No] Were any procedures done? @ -[No] Diagnosis/symptom? @ -Acute hypoxic respiratory failure, sepsis, hypokalemia Acute, or Chronic, or Acute on Chronic? @ -Acute Uncomplicated (without systemic symptoms) or Complicated (systemic symptoms)? @ -Complicated Side effects of treatment? @ -[No] Exacerbation, Progression, or Severe Exacerbation? @ -[No] Poses a threat to life or bodily function? How? (Chest pain, [place], [place], pneumonia, PE, COPD, DKA, ARF, appy, cholecystitis, CVA, Diverticulitis, Homicidal, Suicidal, threat to staff... and all critical care pts) @ -Yes, sepsis and acute hypoxic respiratory failure - Lab Data Result diagrams: 05/23/23 12:52 05/23/23 12:52 Lab Results 05/23/23 05/23/23 05/23/23 Range/Units 02:00 02:10 02:10 WBC 22.1 H (3.8-10.6) k/uL RBC 4.33 (3.80-5.40) m/uL Hgb 12.8 (11.4-16.0) gm/dL Hct 38.5 (34.0-46.0) % MCV 89.0 (80.0-100.0) fL MCH 29.6 (25.0-35.0) pg MCHC 33.2 (31.0-37.0) g/dL RDW 13.9 (11.5-15.5) % Plt Count 343 D (150-450) k/uL MPV 8.0 Neutrophils % (Manual) 89 % Band Neuts % (Manual) 7 % Lymphocytes % (Manual) 3 % Monocytes % (Manual) 2 % Neutrophils # (Manual) 21.20 H (1.3-7.7) k/uL Lymphocytes # (Manual) 0.66 L (1.0-4.8) k/uL Monocytes # (Manual) 0.44 (0-1.0) k/uL Nucleated RBCs 0 (0-0) /100 WBC Manual Slide Review Performed RBC Morphology Normal PT 13.9 H (10.0-12.5) sec INR 1.3 H (<1.2) APTT 24.4 (22.0-30.0) sec Sodium (137-145) mmol/L Potassium (3.5-5.1) mmol/L Chloride (98-107) mmol/L Carbon Dioxide (22-30) mmol/L Anion Gap mmol/L BUN (7-17) mg/dL Creatinine (0.52-1.04) mg/dL Est GFR (CKD-EPI)AfAm (>60 ml/min/1.73 sqM) Est GFR (CKD-EPI)NonAf (>60 ml/min/1.73 sqM) Glucose (74-99) mg/dL Lactic Ac Sepsis Rflx Plasma Lactic Acid Clark (0.7-2.0) mmol/L Calcium (8.4-10.2) mg/dL Total Bilirubin (0.2-1.3) mg/dL AST (14-36) U/L ALT (4-34) U/L Alkaline Phosphatase (38-126) U/L Troponin I 0.226 H* (0.000-0.034) ng/mL Total Protein (6.3-8.2) g/dL Albumin (3.5-5.0) g/dL Influenza Type A (PCR) (Not Detectd) Influenza Type B (PCR) (Not Detectd) RSV (PCR) (Not Detectd) SARS-CoV-2 (PCR) (Not Detectd) 05/23/23 05/23/23 05/23/23 Range/Units 02:10 02:10 03:36 WBC (3.8-10.6) k/uL RBC (3.80-5.40) m/uL Hgb (11.4-16.0) gm/dL Hct (34.0-46.0) % MCV (80.0-100.0) fL MCH (25.0-35.0) pg MCHC (31.0-37.0) g/dL RDW (11.5-15.5) % Plt Count (150-450) k/uL MPV Neutrophils % (Manual) % Band Neuts % (Manual) % Lymphocytes % (Manual) % Monocytes % (Manual) % Neutrophils # (Manual) (1.3-7.7) k/uL Lymphocytes # (Manual) (1.0-4.8) k/uL Monocytes # (Manual) (0-1.0) k/uL Nucleated RBCs (0-0) /100 WBC Manual Slide Review RBC Morphology PT (10.0-12.5) sec INR (<1.2) APTT (22.0-30.0) sec Sodium 136 L (137-145) mmol/L Potassium 3.0 L (3.5-5.1) mmol/L Chloride 98 (98-107) mmol/L Carbon Dioxide 31 H (22-30) mmol/L Anion Gap 7 mmol/L BUN 13 (7-17) mg/dL Creatinine 0.82 (0.52-1.04) mg/dL Est GFR (CKD-EPI)AfAm 81 (>60 ml/min/1.73 sqM) Est GFR (CKD-EPI)NonAf 70 (>60 ml/min/1.73 sqM) Glucose 149 H (74-99) mg/dL Lactic Ac Sepsis Rflx Y Plasma Lactic Acid Clark 2.9 H* (0.7-2.0) mmol/L Calcium 7.8 L (8.4-10.2) mg/dL Total Bilirubin 1.8 H (0.2-1.3) mg/dL AST 36 (14-36) U/L ALT 20 (4-34) U/L Alkaline Phosphatase 124 (38-126) U/L Troponin I (0.000-0.034) ng/mL Total Protein 5.5 L (6.3-8.2) g/dL Albumin 2.6 L (3.5-5.0) g/dL Influenza Type A (PCR) (Not Detectd) Influenza Type B (PCR) (Not Detectd) RSV (PCR) (Not Detectd) SARS-CoV-2 (PCR) (Not Detectd) 05/23/23 Range/Units 03:42 WBC (3.8-10.6) k/uL RBC (3.80-5.40) m/uL Hgb (11.4-16.0) gm/dL Hct (34.0-46.0) % MCV (80.0-100.0) fL MCH (25.0-35.0) pg MCHC (31.0-37.0) g/dL RDW (11.5-15.5) % Plt Count (150-450) k/uL MPV Neutrophils % (Manual) % Band Neuts % (Manual) % Lymphocytes % (Manual) % Monocytes % (Manual) % Neutrophils # (Manual) (1.3-7.7) k/uL Lymphocytes # (Manual) (1.0-4.8) k/uL Monocytes # (Manual) (0-1.0) k/uL Nucleated RBCs (0-0) /100 WBC Manual Slide Review RBC Morphology PT (10.0-12.5) sec INR (<1.2) APTT (22.0-30.0) sec Sodium (137-145) mmol/L Potassium (3.5-5.1) mmol/L Chloride (98-107) mmol/L Carbon Dioxide (22-30) mmol/L Anion Gap mmol/L BUN (7-17) mg/dL Creatinine (0.52-1.04) mg/dL Est GFR (CKD-EPI)AfAm (>60 ml/min/1.73 sqM) Est GFR (CKD-EPI)NonAf (>60 ml/min/1.73 sqM) Glucose (74-99) mg/dL Lactic Ac Sepsis Rflx Plasma Lactic Acid Clark (0.7-2.0) mmol/L Calcium (8.4-10.2) mg/dL Total Bilirubin (0.2-1.3) mg/dL AST (14-36) U/L ALT (4-34) U/L Alkaline Phosphatase (38-126) U/L Troponin I (0.000-0.034) ng/mL Total Protein (6.3-8.2) g/dL Albumin (3.5-5.0) g/dL Influenza Type A (PCR) Not Detected (Not Detectd) Influenza Type B (PCR) Not Detected (Not Detectd) RSV (PCR) Not Detected (Not Detectd) SARS-CoV-2 (PCR) Not Detected (Not Detectd) Disposition Clinical Impression: Sepsis Disposition: ADMITTED IP TO THIS HOSP
[2023-05-23] MEDS ORDERED: VANCOMYCIN 1,500 MG in SODIUM CHLORIDE 0.9% 500 ML 500 ML IVPB STA (02:02)
[2023-05-23] MEDS: SODIUM CHLORIDE 0.9% 1,000 ML IV SCH ×3 (02:52→17:00)
[2023-05-23 02:54] LABS: INR 1.3 (<1.2); Partial Thromboplastin Time 24.4 sec (22.0-30.0); Prothrombin Time 13.9 sec (10.0-12.5)
[2023-05-23 02:55] LABS: HCT 38.5 % (34.0-46.0); HGB 12.8 gm/dL (11.4-16.0); MCH 29.6 pg (25.0-35.0); MCHC 33.2 g/dL (31.0-37.0); RBC 4.33 m/uL (3.80-5.40); RDW 13.9 % (11.5-15.5); WBC 22.1 k/uL (3.8-10.6)
[2023-05-23 02:57] LABS: Platelet Count 343 k/uL (150-450)
[2023-05-23 03:08] LABS: ALT 20 U/L (4-34); AST 36 U/L (14-36); African American GFR (CKD) 81 (>60 ml/min/1.73 sqM); Albumin 2.6 g/dL (3.5-5.0); Alkaline Phosphatase 124 U/L (38-126); Anion Gap 7 mmol/L; Blood Urea Nitrogen 13 mg/dL (7-17); Calcium 7.8 mg/dL (8.4-10.2); Carbon Dioxide 31 mmol/L (22-30); Chloride 98 mmol/L (98-107); Glucose 149 mg/dL (74-99); Non-African American GFR(CKD) 70 (>60 ml/min/1.73 sqM); Sodium 136 mmol/L (137-145); Total Bilirubin 1.8 mg/dL (0.2-1.3); Total Protein 5.5 g/dL (6.3-8.2)
[2023-05-23 03:33] LABS: Band Neutrophils % 7 %; Lymphocytes # (M) 0.66 k/uL (1.0-4.8); Monocytes # (M) 0.44 k/uL (0-1.0); Neutrophils % (M) 89 %; Nucleated Red Blood Cells 0 /100 WBC (0-0); Total Cells Counted 200
[2023-05-23 03:34] LABS: RBC Morphology Normal
[2023-05-23] MEDS ORDERED: POTASSIUM CHLORIDE ER 20 MEQ TAB.ER PO STA (05:04)
[2023-05-23] MEDS ORDERED: NALOXONE 0.4 MG/ML 1 ML VIAL IV PRN (05:04)
[2023-05-23] MEDS ORDERED: ACETAMINOPHEN TAB 325 MG TAB PO PRN (06:02)
--- NOTE | 2023-05-23 06:13 | P.HPIM ---
History of Present Illness H&P Date: 05/23/23 Chief Complaint: Vomiting 77-year-old female with history of liver transplant about 23 years ago on immunosuppressive's Patient was recently admitted and discharged 10 days ago where she was treated for sepsis dehydration and acute kidney injury and viral gastroenteritis Patient comes back with 1 day history of diarrhea and generalized fatigue. She denies any GI bleeding denies any nausea vomiting denies any abdominal pain denies any chest pain denies any shortness of breath denies any fevers or chills She reports significant weakness that she could not get herself up from sitting position with repeated episodes of diarrhea her was unable to take care of her anymore decided to come in the hospital for evaluation She denies any falls or head injury she denies any focal neurodeficits Denies any recent traveling denies any known sick contact Denies any smoking illicit drugs or alcohol review of systems Pertinent positives as noted in HPI. All other systems were reviewed and are negative on exam Constitutional: No acute distress, conversant, pleasant Eyes: Anicteric sclerae, moist conjunctiva, Pupils equal round reactive to light ENMT: NC/AT Oropharynx clear, no erythema, or exudates Neck: Supple, no masses, or JVD No carotid bruits No thyromegaly Lungs: Clear to auscultation Clear to percussion Normal respiratory effort, no accessory muscle use Cardiovascular: Heart regular in rate and rhythm, No murmurs, gallops, or rubs No peripheral edema Abdominal: Soft Nontender, no guarding, rebound or rigidity Abdomen moving with respiration Normoactive bowel sounds No hepatomegaly, No splenomegaly No palpable mass No abdominal wall hernia noted Extremities: No digital cyanosis No clubbing Pedal pulses intact and symmetrical Radial pulses intact and symmetrical No calf tenderness Psychiatric: Alert and oriented to person, place and time Appropriate affect fair judgement Neuro Muscles Strength 5/5 in all 4 extremities Sensation to light touch grossly present throughout Cranial nerves II-XII grossly intact Lymphatics: no palpable cervical or supraclavicular lymph nodes Past Medical History Past Medical History: Hypertension History of Any Multi-Drug Resistant Organisms: None Reported Additional Past Surgical History / Comment(s): liver transplant Past Anesthesia/Blood Transfusion Reactions: No Reported Reaction Past Psychological History: No Psychological Hx Reported Smoking Status: Never smoker Past Alcohol Use History: None Reported Past Drug Use History: None Reported Medications and Allergies Home Medications Medication Instructions Recorded Confirmed Type Atorvastatin [Lipitor] 10 mg PO DAILY 05/11/23 05/11/23 History Cholecalciferol [Vitamin D3 (25 50 mcg PO DAILY 05/11/23 05/11/23 History Mcg = 1000 Iu)] Ketorolac 0.5% Ophth Soln [Acular 1 drop RIGHT EYE BID 05/11/23 05/11/23 History 0.5%] Omeprazole [PriLOSEC] 20 mg PO DAILY 05/11/23 05/11/23 History Sirolimus 1 mg PO DAILY 05/11/23 05/11/23 History amLODIPine [Norvasc] 5 mg PO DAILY 05/11/23 05/11/23 History atenoloL [Tenormin] 75 mg PO DAILY 05/11/23 05/11/23 History azaTHIOprine [Imuran] 50 mg PO DAILY 05/11/23 05/11/23 History prednisoLONE ACETATE 1% OPHTH 1 drop RIGHT EYE BID 05/11/23 05/11/23 History [Pred Forte 1%] ursodioL [Ursodiol] 300 mg PO BID 05/11/23 05/11/23 History Acetaminophen Tab [Tylenol] 650 mg PO Q6HR PRN tab 05/14/23 Rx Allergies Allergy/AdvReac Type Severity Reaction Status Date / Time No Known Allergies Allergy Verified 05/23/23 01:48 Physical Exam Vitals: Vital Signs Temp Pulse Resp BP Pulse Ox 05/23/23 05:00 67 20 115/55 05/23/23 04:00 71 22 122/59 95 05/23/23 03:00 98.4 F 89 18 119/71 95 05/23/23 02:47 88 22 95 05/23/23 01:37 101.0 F H 98 24 115/68 88 L Intake and Output 05/22/23 05/22/23 05/23/23 14:59 22:59 06:59 Other: Weight 86.183 kg Results CBC & Chem 7: 05/23/23 02:10 05/23/23 02:10 Labs: Abnormal Lab Results - Last 24 Hours (Table) 05/23/23 05/23/23 05/23/23 Range/Units 02:00 02:10 02:10 WBC 22.1 H (3.8-10.6) k/uL Neutrophils # (Manual) 21.20 H (1.3-7.7) k/uL Lymphocytes # (Manual) 0.66 L (1.0-4.8) k/uL PT 13.9 H (10.0-12.5) sec INR 1.3 H (<1.2) Sodium (137-145) mmol/L Potassium (3.5-5.1) mmol/L Carbon Dioxide (22-30) mmol/L Glucose (74-99) mg/dL Plasma Lactic Acid Clark (0.7-2.0) mmol/L Calcium (8.4-10.2) mg/dL Total Bilirubin (0.2-1.3) mg/dL Troponin I 0.226 H* (0.000-0.034) ng/mL Total Protein (6.3-8.2) g/dL Albumin (3.5-5.0) g/dL 05/23/23 05/23/23 05/23/23 Range/Units 02:10 02:10 05:10 WBC (3.8-10.6) k/uL Neutrophils # (Manual) (1.3-7.7) k/uL Lymphocytes # (Manual) (1.0-4.8) k/uL PT (10.0-12.5) sec INR (<1.2) Sodium 136 L (137-145) mmol/L Potassium 3.0 L (3.5-5.1) mmol/L Carbon Dioxide 31 H (22-30) mmol/L Glucose 149 H (74-99) mg/dL Plasma Lactic Acid Clark 2.9 H* (0.7-2.0) mmol/L Calcium 7.8 L (8.4-10.2) mg/dL Total Bilirubin 1.8 H (0.2-1.3) mg/dL Troponin I 0.641 H* (0.000-0.034) ng/mL Total Protein 5.5 L (6.3-8.2) g/dL Albumin 2.6 L (3.5-5.0) g/dL Assessment and Plan Assessment: 77-year-old female with history of liver transplant 23 years ago hypertension coming in for recurrent episodes of diarrhea and generalized fatigue discussed case with ED doctor and accepted the admission for acute diarrhea rule out C. difficile with hypokalemia with anticipated length of stay less than 2 midnights Acute hypoxic respiratory failure Supplemental oxygen as needed Chest x-ray unremarkable Check D-dimer to rule out underlying venous thromboembolism if positive consider CT angio of the chest to rule out PE Gastroenteritis with recurrent diarrhea Rule out C. difficile Supportive care IV fluid hydration with normal saline Check blood cultures Patient received Zosyn and vancomycin in the ED, will continue for now until identify source of infection White count 22.1 Hemoglobin 12.8 Lactic acid 2.9 Tropes chronically elevated, however is trending up this is suspected secondary to underlying septic process with demand ischemia Denies any chest pain No EKG changes suggestive of ischemia Cardiology consult Acute viral respiratory panel negative for COVID influenza and RSV Hypokalemia possibly secondary to repeated diarrhea Replace IV and follow-up levels Check magnesium Otherwise renal function unremarkable sodium 136 BUN 13 creatinine 0.8 Hypertension Continue with amlodipine and atenolol History of liver transplant Continue with Imuran Recent CT scan done during last admission showed transplant changes to the liver masslike area with the right hepatic lobe measuring up to 4.3 cm recommending further evaluation by MRI Consider follow-up outpatient with GI, we do not have on-call GI service this weekend Full code DVT prophylaxis heparin subcu 3 times daily
--- NOTE | 2023-05-23 07:48 | XR ---
EXAMINATION TYPE: XR chest 2V DATE OF EXAM: 05/23/2023 COMPARISON: 05/11/2023 INDICATION: Fever TECHNIQUE: Frontal and lateral views of the chest are obtained. FINDINGS: The heart size is normal. The pulmonary vasculature is normal. There is mild streak atelectasis in the right hilar region. Lungs otherwise appear clear. Chronic marco vation of the right diaphragm. IMPRESSION: 1. Streak atelectasis right midlung
[2023-05-23] MEDS ORDERED: PIPERACILLIN-TAZOBACTAM 3.375 GM in SODIUM CHLORIDE 0.9% 100 ML IVPB SCH (08:00)
[2023-05-23] MEDS: HEPARIN SODIUM,PORCINE 5,000 UNIT/ML 1 ML VIAL SQ SCH ×2 (08:38→17:02)
[2023-05-23] MEDS: PANTOPRAZOLE 40 MG TABLET PO SCH (08:42)
[2023-05-23] MEDS: amLODIPine 5 MG TAB PO SCH (08:44)
[2023-05-23] MEDS: ATORVASTATIN 10 MG TAB PO SCH (08:44)
[2023-05-23] MEDS: atenoloL 25 MG TAB PO SCH (08:45)
[2023-05-23] MEDS: azaTHIOprine 50 MG TAB PO SCH (09:09)
--- NOTE | 2023-05-23 12:34 | CONS ---
CONSULTATION CHIEF COMPLAINT: Elevated troponin. HISTORY OF PRESENT ILLNESS: This is a 77-year-old lady with history of liver transplant, on immunosuppressive therapy, who was admitted to hospital 10 days ago; was treated for sepsis, dehydration, renal insufficiency, and viral gastroenteritis. She comes back into hospital with history of diarrhea, fatigue, and weakness and not feeling well. They have done troponins, which are mildly elevated, due to which I have been consulted. She denies chest pain, difficulty in breathing, palpitations, dizziness, or syncope. Her troponin is 0.2 and 0.6. Test for COVID, RSV, and influenza is negative. Potassium is low at 3. White cell count is elevated at 22. The patient is currently being treated with antibiotics. PAST MEDICAL HISTORY: Significant for hypertension, history of liver transplant. MEDICATIONS: Include Imuran, Tenormin, Norvasc, Prilosec, Lipitor, Ursodiol, and vitamin D. ALLERGIES: There are no known drug allergies. FAMILY HISTORY: Negative for premature coronary artery disease. SOCIAL HISTORY: Negative for smoking, EtOH abuse, or drug abuse. REVIEW OF SYSTEMS: review of systems has been performed. Pertinents are as documented in history of presenting illness. PHYSICAL EXAMINATION: GENERAL: Comfortable at rest. VITAL SIGNS: Stable. There is no jugular venous distention. Carotid upstroke is normal. There is no bruit. CHEST: Reveals good air entry bilaterally. HEART: Reveals first and second heart sounds. No gallop. No murmur. No rub. ABDOMEN: Soft. EXTREMITIES: Did not reveal any edema. Peripheral pulses are felt. LABORATORY DATA: EKG shows sinus rhythm with nonspecific ST-T wave changes. D-dimer is elevated at 6.2. ASSESSMENT AND PLAN: 1. Troponin elevation of unclear clinical significance. 2. D-dimer elevation. 3. Sepsis. PLAN: I will obtain a 2D echo. Will get a CT scan of the chest to rule out pulmonary embolism given the unexplained D-dimer elevation. MMODL / IJN: [id number] /
[2023-05-23 13:11] LABS: Basophils # (A) 0.1 k/uL (0-0.2); Basophils % (A) 0 %; Eosinophils # (A) 0.2 k/uL (0-0.7); Eosinophils % (A) 1 %; HCT 38.7 % (34.0-46.0); HGB 12.3 gm/dL (11.4-16.0); Lymphocytes # (A) 1.5 k/uL (1.0-4.8); Lymphocytes % (A) 7 %; MCH 28.3 pg (25.0-35.0); MCHC 31.7 g/dL (31.0-37.0); MCV 89.4 fL (80.0-100.0); Mean Platelet Volume 8.7; Monocytes # (A) 0.6 k/uL (0-1.0); Monocytes % (A) 3 %; Neutrophils # (A) 20.1 k/uL (1.3-7.7); Neutrophils % (A) 90 %; Platelet Count 201 k/uL (150-450); RBC 4.33 m/uL (3.80-5.40); RDW 13.9 % (11.5-15.5); WBC 22.4 k/uL (3.8-10.6)
[2023-05-23 13:23] LABS: African American GFR (CKD) >90 (>60 ml/min/1.73 sqM); Anion Gap 5 mmol/L; Blood Urea Nitrogen 14 mg/dL (7-17); Calcium 7.1 mg/dL (8.4-10.2); Carbon Dioxide 28 mmol/L (22-30); Chloride 105 mmol/L (98-107); Glucose 119 mg/dL (74-99); Magnesium 1.2 mg/dL (1.6-2.3); Non-African American GFR(CKD) 78 (>60 ml/min/1.73 sqM); Potassium 3.6 mmol/L (3.5-5.1); Sodium 138 mmol/L (137-145)
[2023-05-23] MEDS: metroNIDAZOLE-NS PMX 500 MG in SALINE 1 100ML.BAG IVPB SCH (17:00)
[2023-05-23] MEDS ORDERED: VANCOMYCIN 1,500 MG in SODIUM CHLORIDE 0.9% 500 ML 500 ML IVPB SCH (18:00)
[2023-05-23] MEDS: MAGNESIUM SULFATE-D5W PMX 1 GM in DEXTROSE/WATER 1 100ML.BAG IVPB SCH ×3 (18:33→22:27)
[2023-05-24] MEDS: MAGNESIUM SULFATE-D5W PMX 1 GM in DEXTROSE/WATER 1 100ML.BAG IVPB SCH
[2023-05-24 00:37] LABS: Amorphous Sediment,Urine Occasional /hpf; Appearance,Urine Cloudy (Clear); Bacteria,Urine Occasional /hpf; Bilirubin,Urine Negative (Negative); Blood,Urine Moderate (Negative); Color,Urine Yellow; Glucose,Urine (UA) Negative (Negative); Hyaline Casts,Urine 10 /lpf (0-2); Ketones,Urine Negative (Negative); Leukocyte Esterase,Urine Trace (Negative); Mucus,Urine Rare /hpf; Nitrite,Urine Negative (Negative); Protein,Urine Trace (Negative); RBC,Urine 6 /hpf (0-5); Specific Gravity,Urine 1.018 (1.001-1.035); Squamous Epithelial Cell,Urine 17 /hpf (0-4); Urobilinogen,Urine <2.0 mg/dL (<2.0); WBC,Urine 10 /hpf (0-5)
[2023-05-24] MEDS: metroNIDAZOLE-NS PMX 500 MG in SALINE 1 100ML.BAG IVPB SCH ×3 (01:27→15:50)
[2023-05-24] MEDS: SODIUM CHLORIDE 0.9% 1,000 ML IV SCH ×3 (01:34→13:58)
[2023-05-24] MEDS: PANTOPRAZOLE 40 MG TABLET PO SCH (06:19)
--- NOTE | 2023-05-24 07:55 | CA ---
Transthoracic Echo Report Name: Taylor Guardado Age: 77 Gender: F : 1945 Exam Date: 05/23/2023 12:16 Exam Location: [facility] Ht (in): 62 Wt (lb): 190 Ordering Physician: Jose Juarez MD ([id number]) Attending/Referring Phys: Galileo Hernandez MD [employer] Hand Nova Leavitt RDCS Procedure CPT: Indications: + trop, weakness Cardiac Hx: Technical Quality: Good Contrast 1: Total Dose (mL): Contrast 2: Total Dose (mL): MEASUREMENTS (Male / Female) Normal Values 2D ECHO LV Diastolic Diameter PLAX 4.5 cm 4.2 - 5.9 / 3.9 - 5.3 cm LV Systolic Diameter PLAX 3.4 cm IVS Diastolic Thickness 1.3 cm 0.6 - 1.0 / 0.6 - 0.9 cm LVPW Diastolic Thickness 1.2 cm 0.6 - 1.0 / 0.6 - 0.9 cm LV Relative Wall Thickness 0.6 RV Internal Dim ED PLAX 3.6 cm LA Systolic Diameter LX 4.2 cm 3.0 - 4.0 / 2.7 - 3.8 cm LV Diastolic Volume MOD 4C 98.9 cm??? LV Systolic Volume MOD 4C 36.4 cm??? LV Ejection Fraction MOD 4C 63.2 % LV Cardiac Index MOD 4C 1956.1 cm???/min???m??? LV Diastolic Length 4C 7.7 cm LV Systolic Length 4C 6.4 cm LV Diastolic Volume MOD 2C 84.8 cm??? LV Systolic Volume MOD 2C 37.9 cm??? LV Ejection Fraction MOD 2C 55.4 % LV Cardiac Index MOD 2C 1470.0 cm???/min???m??? LV Diastolic Length 2C 8.2 cm LV Systolic Length 2C 6.5 cm LA Volume 76.1 cm??? 18 - 58 / 22 - 52 cm??? LA Volume Index 38.4 cm???/m??? 16 - 28 cm???/m??? M-MODE Aortic Root Diameter MM 3.1 cm MV E Point Septal Separation 0.6 cm AV Cusp Separation MM 1.8 cm DOPPLER AV Peak Velocity 162.2 cm/s AV Peak Gradient 10.5 mmHg MV Area PHT 2.4 cm??? Mitral E Point Velocity 128.4 cm/s Mitral A Point Velocity 114.9 cm/s Mitral E to A Ratio 1.1 MV Deceleration Time 312.7 ms TR Peak Velocity 336.4 cm/s TR Peak Gradient 45.3 mmHg Right Ventricular Systolic Press 50.3 mmHg FINDINGS Left Ventricle Left ventricular ejection fraction is estimated at 55-60 %. Moderately increased septal wall thickness. Mildly increased posterior wall thickness. Right Ventricle Mild right ventricular dilatation. Moderate pulmonary hypertension. Right ventricular systolic pressure estimated at 50 mm hg. Right Atrium Normal right atrial size. Left Atrium Mildly increased left atrial diameter. Moderately increased left atrial volume. Mildly increased left atrial area. Mitral Valve Mitral valve thickened. Mild mitral annular calcification. Trace to mild mitral regurgitation. Aortic Valve Trileaflet aortic valve. No aortic valve stenosis or regurgitation. Tricuspid Valve Structurally normal tricuspid valve. Mild tricuspid regurgitation. Pulmonic Valve Pulmonic valve not well visualized. No pulmonic regurgitation. Pericardium No pericardial effusion. Aorta Normal size aortic root and proximal ascending aorta. CONCLUSIONS Normal left ventricular size wall motion systolic function with an ejection fraction of 60% Aortic sclerosis without significant stenosis Previewed by: Dr. Jose Juarez MD (Electronically Signed) Final Date: 24 May 2023 07:55
[2023-05-24] MEDS: ATORVASTATIN 10 MG TAB PO SCH (08:42)
[2023-05-24] MEDS: azaTHIOprine 50 MG TAB PO SCH (08:42)
[2023-05-24] MEDS: amLODIPine 5 MG TAB PO SCH (08:42)
[2023-05-24] MEDS: atenoloL 25 MG TAB PO SCH (08:42)
[2023-05-24] MEDS: HEPARIN SODIUM,PORCINE 5,000 UNIT/ML 1 ML VIAL SQ SCH ×3 (08:42→15:50)
[2023-05-24 09:33] LABS: Basophils % (A) 0 %; Eosinophils # (A) 0.1 k/uL (0-0.7); Eosinophils % (A) 1 %; HCT 39.1 % (34.0-46.0); HGB 12.6 gm/dL (11.4-16.0); Hypochromasia Slight; Lymphocytes # (A) 1.4 k/uL (1.0-4.8); Lymphocytes % (A) 10 %; MCH 29.6 pg (25.0-35.0); MCHC 32.3 g/dL (31.0-37.0); MCV 91.6 fL (80.0-100.0); Mean Platelet Volume 7.8; Monocytes # (A) 0.4 k/uL (0-1.0); Monocytes % (A) 3 %; Neutrophils # (A) 11.8 k/uL (1.3-7.7); Neutrophils % (A) 85 %; Platelet Count 287 k/uL (150-450); RBC 4.27 m/uL (3.80-5.40); RDW 13.7 % (11.5-15.5); WBC 13.9 k/uL (3.8-10.6)
[2023-05-24] MEDS: RAPAMUNE 1 MG PO SCH (10:06)
[2023-05-24 10:07] LABS: ALT 20 U/L (4-34); AST 39 U/L (14-36); African American GFR (CKD) >90 (>60 ml/min/1.73 sqM); Albumin 2.4 g/dL (3.5-5.0); Alkaline Phosphatase 123 U/L (38-126); Anion Gap 6 mmol/L; Blood Urea Nitrogen 13 mg/dL (7-17); Calcium 7.4 mg/dL (8.4-10.2); Carbon Dioxide 30 mmol/L (22-30); Chloride 102 mmol/L (98-107); Glucose 133 mg/dL (74-99); Non-African American GFR(CKD) 84 (>60 ml/min/1.73 sqM); Potassium 3.3 mmol/L (3.5-5.1); Sodium 138 mmol/L (137-145); Total Bilirubin 0.9 mg/dL (0.2-1.3); Total Protein 5.2 g/dL (6.3-8.2)
--- NOTE | 2023-05-24 10:15 | P.PN ---
Subjective HISTORY OF PRESENT ILLNESS: This is a 77 old female who initially presented to the hospital with a chief complaint of feeling generally unwell and diarrhea. She states the symptoms have since resolved. Cardiology was consulted for evaluation of elevated troponins. The patient denies having any chest pain or pressure. She denies any shortness of breath. Echocardiogram completed revealing ejection fraction 60% with moderate pulmonary hypertension. Patient is D-dimer was elevated at 6.21. Primary medicine has decided not to pursue CTA at this time. PHYSICAL EXAM: VITAL SIGNS: Reviewed. GENERAL: Well-developed in no acute distress. NECK: Supple. No JVD or thyromegaly LUNGS: Respirations even and unlabored. Lungs essentially clear to auscultation bilaterally. HEART: Regular rate and rhythm. S1 and S2 heard. EXTREMITIES: Normal range of motion. No clubbing or cyanosis. Peripheral pulses intact. No lower extremity edema ASSESSMENT: Acute gastroenteritis Leukocytosis Elevated troponins of unclear significance Elevated D-dimer History of liver transplant Masslike area of right hepatic lobe, noted on recent CT, patient to follow-up with GI on outpatient basis PLAN: No evidence of acute coronary syndrome Continue current cardiac medications Continue to monitor blood pressure and telemetry monitoring Further recommendations pending patient course Nurse practitioner note has been reviewed by physician. Signing provider agrees with the documented findings, assessment, and plan of care documented by TEST CLERK as a scribe. Objective - Vital Signs Vital signs: Vital Signs Temp 98.0 F 05/24/23 08:36 Pulse 73 05/24/23 08:37 Resp 18 05/24/23 08:36 BP 137/78 05/24/23 08:36 Pulse Ox 94 L 05/24/23 08:40 FiO2 Intake & Output 05/23/23 05/24/23 05/24/23 18:59 06:59 18:59 Intake Total 118 118 Output Total 100 Balance 118 18 Weight 86.183 kg Intake: Oral 118 118 Output: Urine 100 Other: Voiding Method Toilet Toilet # Voids 1 1 # Bowel Movements 1 - Labs CBC & Chem 7: 05/24/23 08:36 05/24/23 08:36 Labs: Abnormal Lab Results - Last 24 Hours (Table) 05/23/23 05/23/23 05/23/23 Range/Units 12:52 12:52 12:52 WBC 22.4 H (3.8-10.6) k/uL Neutrophils # 20.1 H (1.3-7.7) k/uL Potassium (3.5-5.1) mmol/L Glucose 119 H (74-99) mg/dL Calcium 7.1 L (8.4-10.2) mg/dL Magnesium 1.2 L (1.6-2.3) mg/dL AST (14-36) U/L Troponin I 0.301 H* (0.000-0.034) ng/mL Total Protein (6.3-8.2) g/dL Albumin (3.5-5.0) g/dL Urine Appearance (Clear) Urine Protein (Negative) Urine Blood (Negative) Ur Leukocyte Esterase (Negative) Urine RBC (0-5) /hpf Urine WBC (0-5) /hpf Ur Squamous Epith Cells (0-4) /hpf Amorphous Sediment (None) /hpf Urine Bacteria (None) /hpf Hyaline Casts (0-2) /lpf Urine Mucus (None) /hpf 05/24/23 05/24/23 05/24/23 Range/Units 00:10 08:36 08:36 WBC 13.9 H (3.8-10.6) k/uL Neutrophils # 11.8 H (1.3-7.7) k/uL Potassium 3.3 L (3.5-5.1) mmol/L Glucose 133 H (74-99) mg/dL Calcium 7.4 L (8.4-10.2) mg/dL Magnesium (1.6-2.3) mg/dL AST 39 H (14-36) U/L Troponin I (0.000-0.034) ng/mL Total Protein 5.2 L (6.3-8.2) g/dL Albumin 2.4 L (3.5-5.0) g/dL Urine Appearance Cloudy H (Clear) Urine Protein Trace H (Negative) Urine Blood Moderate H (Negative) Ur Leukocyte Esterase Trace H (Negative) Urine RBC 6 H (0-5) /hpf Urine WBC 10 H (0-5) /hpf Ur Squamous Epith Cells 17 H (0-4) /hpf Amorphous Sediment Occasional H (None) /hpf Urine Bacteria Occasional H (None) /hpf Hyaline Casts 10 H (0-2) /lpf Urine Mucus Rare H (None) /hpf
[2023-05-24] MEDS ORDERED: POTASSIUM CHLORIDE ER 20 MEQ TAB.ER PO STA (14:13)
--- NOTE | 2023-05-24 14:14 | P.PN ---
Subjective Progress Note Date: 05/24/23 Hospital Course: 77-year-old female with history of liver transplant on immunosuppressive therapy, hypertension, dyslipidemia, GERD presenting with diarrhea, fevers and chills. Patient was recently admitted and discharged 10 days ago and was treated for sepsis, dehydration, acute kidney injury and viral gastroenteritis. CT abdomen pelvis completed during that time showed transplant changes to the liver, masslike area within the right hepatic lobe measuring 4.3 cm, further MRI evaluation recommended, pneumobilia, likely secondary to Cossman changes, large hiatal hernia, colon mostly unremarkable. On initial presentation, patient was febrile and hypoxic. WBC 22.4, magnesium 1.2, creatinine 0.75, troponin at 0.641. C. difficile negative. Patient was started on broad-spectrum antibiotics. Cardiology and ID consulted. Subjective: Patient seen and examined at bedside. No acute events overnight. She claims that she had 2 bowel movements yesterday and they were mushy, and had another en wel movement today which was also mushy. Pertinent positives and negatives as discussed above, a complete review of systems was performed and all other systems are negative. Vitals Signs Reviewed. General: Nontoxic, no distress, appears at stated age Derm: Warm, dry Head: Atraumatic, normocephalic, symmetric Eyes: EOMI, no lid lag, anicteric sclera Mouth: No lip lesion, mucus membranes moist Cardiovascular: S1S2 reg, no murmur Lungs: CTA bilateral, no rhonchi, no rales, no accessory muscle use Abdominal: Soft, nontender to palpation, no guarding, no appreciable organomegaly Ext: No gross muscle atrophy, no edema, no contractures Neuro: CN II-XI grossly intact, no focal neuro deficits Psych: Alert, oriented, appropriate affect Data Reviewed Today: Pertinent Labs: WBC 13.9, potassium 3.3, magnesium 2.1 Imaging: Echocardiogram showed LVEF 60%. Assessment and Plan: Active: Gastroenteritis, recurrent diarrhea Sepsis secondary to above History of liver transplant on immunosuppressive therapy -Blood cultures pending, stool studies pending -C. difficile negative -Diarrhea is improving after starting Flagyl and ceftriaxone -ID consulted pending recommendations -Sirolimus levels pending -Continue normal saline at 130 cc an hour -Elevated D-dimer likely in the setting of sepsis Acute hypoxic respiratory failure, resolved NSTEMI, likely nonischemic -No active chest pain -Cardiology note reviewed, continue current management Hypokalemia -20 mEq oral potassium given, repeat BMP tomorrow Resolved: Hypomagnesemia Chronic: Hypertension Dyslipidemia DVT ppx: Subcu heparin Code status: Full code Anticipated discharge place: Pending clinical course Anticipated discharge time: Pending clinical course Objective - Vital Signs Vital signs: Vital Signs Temp 98.1 F 05/24/23 12:02 Pulse 69 05/24/23 12:02 Resp 18 05/24/23 12:02 BP 132/75 05/24/23 12:02 Pulse Ox 93 L 05/24/23 12:02 FiO2 Intake & Output 05/23/23 05/24/23 05/24/23 18:59 06:59 18:59 Intake Total 118 236 Output Total 100 Balance 118 136 Weight 86.183 kg Intake: Oral 118 236 Output: Urine 100 Other: Voiding Method Toilet Toilet # Voids 1 2 # Bowel Movements 1 - Labs CBC & Chem 7: 05/24/23 08:36 05/24/23 08:36 Labs: Abnormal Lab Results - Last 24 Hours (Table) 05/24/23 05/24/23 05/24/23 Range/Units 00:10 08:36 08:36 WBC 13.9 H (3.8-10.6) k/uL Neutrophils # 11.8 H (1.3-7.7) k/uL Potassium 3.3 L (3.5-5.1) mmol/L Glucose 133 H (74-99) mg/dL Calcium 7.4 L (8.4-10.2) mg/dL AST 39 H (14-36) U/L Total Protein 5.2 L (6.3-8.2) g/dL Albumin 2.4 L (3.5-5.0) g/dL Urine Appearance Cloudy H (Clear) Urine Protein Trace H (Negative) Urine Blood Moderate H (Negative) Ur Leukocyte Esterase Trace H (Negative) Urine RBC 6 H (0-5) /hpf Urine WBC 10 H (0-5) /hpf Ur Squamous Epith Cells 17 H (0-4) /hpf Amorphous Sediment Occasional H (None) /hpf Urine Bacteria Occasional H (None) /hpf Hyaline Casts 10 H (0-2) /lpf Urine Mucus Rare H (None) /hpf Microbiology - Last 24 Hours (Table) 05/23/23 02:10 Blood Culture - Preliminary Blood 05/23/23 01:55 Blood Culture - Preliminary Blood
[2023-05-24 15:36] LABS: Cryptosporidium Antigen Negative (Negative)
[2023-05-24] MEDS ORDERED: ONDANSETRON 4 MG/2 ML VIAL IVP PRN ×2 (16:28→16:29)
[2023-05-25] MEDS: metroNIDAZOLE-NS PMX 500 MG in SALINE 1 100ML.BAG IVPB SCH ×4 (00:19→23:07)
[2023-05-25] MEDS: HEPARIN SODIUM,PORCINE 5,000 UNIT/ML 1 ML VIAL SQ SCH ×4 (00:19→23:07)
[2023-05-25] MEDS: SODIUM CHLORIDE 0.9% 1,000 ML IV SCH ×3 (00:20→17:42)
[2023-05-25] MEDS: PANTOPRAZOLE 40 MG TABLET PO SCH (06:30)
[2023-05-25] MEDS: azaTHIOprine 50 MG TAB PO SCH (08:13)
[2023-05-25] MEDS: amLODIPine 5 MG TAB PO SCH (08:13)
[2023-05-25] MEDS: atenoloL 25 MG TAB PO SCH (08:13)
[2023-05-25] MEDS: ATORVASTATIN 10 MG TAB PO SCH (08:13)
[2023-05-25] MEDS: RAPAMUNE 1 MG PO SCH (08:14)
[2023-05-25 09:42] LABS: Basophils # (A) 0.1 k/uL (0-0.2); Basophils % (A) 0 %; Eosinophils # (A) 0.1 k/uL (0-0.7); Eosinophils % (A) 1 %; HCT 40.9 % (34.0-46.0); Hypochromasia Moderate; Lymphocytes # (A) 1.9 k/uL (1.0-4.8); Lymphocytes % (A) 14 %; MCH 29.6 pg (25.0-35.0); MCHC 31.7 g/dL (31.0-37.0); MCV 93.2 fL (80.0-100.0); Mean Platelet Volume 8.2; Monocytes # (A) 0.6 k/uL (0-1.0); Monocytes % (A) 4 %; Neutrophils # (A) 11.1 k/uL (1.3-7.7); Neutrophils % (A) 79 %; Platelet Count 301 k/uL (150-450); RBC 4.38 m/uL (3.80-5.40); RDW 13.8 % (11.5-15.5)
--- NOTE | 2023-05-25 09:51 | P.CONS ---
History of Present Illness - Reason for Consult Consult date: 05/24/23 - History of Present Illness Patient is a 77-year-old female with a past medical history of hypertension patient to have a history of liver transplant about 23 years ago and has been on immunosuppressive patient was recently admitted to this hospital and she was treated for dehydration and acute kidney injury and viral gastroenteritis subsequently discharged home and now presenting back to the hospital concerning for generalized fatigue weakness and the patient also have diarrhea with multiple episodes per day that was watery no blood or mucus in the stool she did have some lower abdominal cramping pain mild to moderate intensity without any radiation did have some nausea but no vomiting patient on prese ntation to the hospital have a fever of 101 F no significant tachycardia hypertension she was mildly hypoxic with O2 sats of 88% room air currently she is on 4 L nasal cannula oxygen patient did have white count of 22.4 which is down to 13.9 today creatinine was 0.7, liver enzymes are normal influenza RSV COVID testing was negative patient did have a stool for C. difficile initial testing was negative I was able to order PCR which came back negative as well she did have stool cultures are currently pending patient did have chest x-ray atelectasis right midlung patient was initially on Zosyn subsequently switched over to Rocephin and Flagyl infectious disease was consulted for further manag ement of antibiotic therapy Past Medical History Past Medical History: Hypertension History of Any Multi-Drug Resistant Organisms: None Reported Additional Past Surgical History / Comment(s): liver transplant Past Anesthesia/Blood Transfusion Reactions: No Reported Reaction Past Psychological History: No Psychological Hx Reported Smoking Status: Never smoker Past Alcohol Use History: None Reported Past Drug Use History: None Reported Medications and Allergies Home Medications Medication Instructions Recorded Confirmed Type Atorvastatin [Lipitor] 10 mg PO DAILY 05/11/23 05/23/23 History Cholecalciferol [Vitamin D3 (25 50 mcg PO DAILY 05/11/23 05/23/23 History Mcg = 1000 Iu)] Ketorolac 0.5% Ophth Soln [Acular 1 drop RIGHT EYE BID 05/11/23 05/23/23 History 0.5%] Omeprazole [PriLOSEC] 20 mg PO DAILY 05/11/23 05/23/23 History Sirolimus 1 mg PO DAILY 05/11/23 05/23/23 History amLODIPine [Norvasc] 5 mg PO DAILY 05/11/23 05/23/23 History atenoloL [Tenormin] 75 mg PO DAILY 05/11/23 05/23/23 History azaTHIOprine [Imuran] 50 mg PO DAILY 05/11/23 05/23/23 History prednisoLONE ACETATE 1% OPHTH 1 drop RIGHT EYE BID 05/11/23 05/23/23 History [Pred Forte 1%] ursodioL [Ursodiol] 300 mg PO BID 05/11/23 05/23/23 History Acetaminophen Tab [Tylenol] 650 mg PO Q6HR PRN tab 05/14/23 05/23/23 Rx Allergies Allergy/AdvReac Type Severity Reaction Status Date / Time No Known Allergies Allergy Verified 05/23/23 12:28 Physical Exam Vitals: Vital Signs Temp Pulse Resp BP Pulse Ox 05/24/23 15:46 98.4 F 77 18 150/80 94 L 05/24/23 13:57 69 18 05/24/23 12:02 98.1 F 69 18 132/75 93 L 05/24/23 08:40 94 L 05/24/23 08:37 73 05/24/23 08:36 98.0 F 73 18 137/78 92 L 05/24/23 04:38 97.8 F 67 18 130/68 91 L 05/24/23 02:00 92 05/23/23 23:57 98.9 F 92 18 139/80 93 L 05/23/23 20:36 76 05/23/23 20:25 99.0 F 76 16 144/65 91 L Intake and Output 05/24/23 05/24/23 05/24/23 06:59 14:59 22:59 Intake Total 236 Output Total 100 4 Balance 136 -4 Intake: Oral 236 Output: Urine 100 Urine/Stool Mix 4 Other: Voiding Method Toilet Toilet # Voids 1 2 4 # Bowel Movements 1 Results CBC & Chem 7: 05/25/23 08:25 05/25/23 08:25 Labs: Abnormal Lab Results - Last 24 Hours (Table) 05/23/23 05/24/23 05/24/23 Range/Units 14:01 00:10 08:36 WBC 13.9 H (3.8-10.6) k/uL Neutrophils # 11.8 H (1.3-7.7) k/uL Potassium (3.5-5.1) mmol/L Glucose (74-99) mg/dL Calcium (8.4-10.2) mg/dL AST (14-36) U/L Total Protein (6.3-8.2) g/dL Albumin (3.5-5.0) g/dL Urine Appearance Cloudy H (Clear) Urine Protein Trace H (Negative) Urine Blood Moderate H (Negative) Ur Leukocyte Esterase Trace H (Negative) Urine RBC 6 H (0-5) /hpf Urine WBC 10 H (0-5) /hpf Ur Squamous Epith Cells 17 H (0-4) /hpf Amorphous Sediment Occasional H (None) /hpf Urine Bacteria Occasional H (None) /hpf Hyaline Casts 10 H (0-2) /lpf Urine Mucus Rare H (None) /hpf Stool Lactoferrin Positive A (Negative) 05/24/23 Range/Units 08:36 WBC (3.8-10.6) k/uL Neutrophils # (1.3-7.7) k/uL Potassium 3.3 L (3.5-5.1) mmol/L Glucose 133 H (74-99) mg/dL Calcium 7.4 L (8.4-10.2) mg/dL AST 39 H (14-36) U/L Total Protein 5.2 L (6.3-8.2) g/dL Albumin 2.4 L (3.5-5.0) g/dL Urine Appearance (Clear) Urine Protein (Negative) Urine Blood (Negative) Ur Leukocyte Esterase (Negative) Urine RBC (0-5) /hpf Urine WBC (0-5) /hpf Ur Squamous Epith Cells (0-4) /hpf Amorphous Sediment (None) /hpf Urine Bacteria (None) /hpf Hyaline Casts (0-2) /lpf Urine Mucus (None) /hpf Stool Lactoferrin (Negative) Microbiology - Last 24 Hours (Table) 05/23/23 02:10 Blood Culture - Preliminary Blood 05/23/23 01:55 Blood Culture - Preliminary Blood Assessment and Plan Plan: 1patient presented hospital with sepsis in this patient who did have fever elevated white count predominantly did have a GI symptom especially with the diarrhea, likely etiology of her sepsis patient did tested negative for C. difficile both EIA and PCR 2-patient seem to have some clinical improvement as her diarrhea has improved with the current therapy of Rocephin and Flagyl should be continued while waiting for the stool culture to finalize 3avoid antimotility agents We will follow on clinical condition and cultures to further adjust medication if needed Thank you for this consultation we will follow the patient along with you Dictation was produced using [employer] dictation software. please excuse any grammatical, word or spelling errors.
[2023-05-25 10:54] LABS: ALT 19 U/L (4-34); AST 33 U/L (14-36); African American GFR (CKD) >90 (>60 ml/min/1.73 sqM); Albumin 2.4 g/dL (3.5-5.0); Alkaline Phosphatase 113 U/L (38-126); Anion Gap 6 mmol/L; Blood Urea Nitrogen 8 mg/dL (7-17); Calcium 7.8 mg/dL (8.4-10.2); Carbon Dioxide 25 mmol/L (22-30); Chloride 106 mmol/L (98-107); Glucose 124 mg/dL (74-99); Non-African American GFR(CKD) >90 (>60 ml/min/1.73 sqM); Potassium 3.8 mmol/L (3.5-5.1); Sodium 137 mmol/L (137-145); Total Bilirubin 0.9 mg/dL (0.2-1.3); Total Protein 5.3 g/dL (6.3-8.2)
--- NOTE | 2023-05-25 12:22 | P.PN ---
Subjective Progress Note Date: 05/25/23 77-year-old female with history of liver transplant on immunosuppressive therapy, hypertension, dyslipidemia, GERD presenting with diarrhea, fevers and chills. Patient was recently admitted and discharged 10 days ago and was treated for sepsis, dehydration, acute kidney injury and viral gastroenteritis. CT abdomen pelvis completed during that time showed transplant changes to the liver, masslike area within the right hepatic lobe measuring 4.3 cm, further MRI evaluation recommended, pneumobilia, likely secondary to transplant changes, large hiatal hernia, colon mostly unremarkable. On initial presentation, patient was febrile and hypoxic. WBC 22.4, magnesium 1.2, creatinine 0.75, troponin at 0.641. C. difficile negative. Patient was started on Rocephin and Flagyl and admitted for further management. Troponin trended 0.226, 0.641, 0.301. Cardiology consulted, ACS ruled out, recommended to continue current cardiac meds. Echo showed EF 60%, aortic sclerosis. ID recommended continuing antibiotics while waiting for stool cultures to finalize. 05/25 Patient was seen and examined. She reports fatigue and generalized weakness. 4 seedy bowel movements since yesterday. CBC WBC 14. CMP glu 124, Ca 7.8, alb 2.4. General: Non toxic, no distress, appears at stated age Derm: Warm, dry Head: Atraumatic, normocephalic, symmetric Eyes: EOMI, no lid lag, anicteric sclera Mouth: No lip lesion, mucus membranes moist Cardiovascular: S1S2 reg, no murmur Lungs: CTA bilateral, no rhonchi, no rales, no accessory muscle use Abdominal: Soft, nontender to palpation, no guarding, no appreciable orga nomegaly Ext: No gross muscle atrophy, no edema, no contractures Neuro: no focal neuro deficits Psych: Alert, oriented, appropriate affect Based on my assessment of this patient, this patient meets a high complexity level of care. Patient has an acute diagnosis of sepsis due to gastroenteritis with history of liver transplant on immunosuppressive medications that poses a threat to life or bodily function. Sepsis due to Gastroenteritis, recurrent diarrhea: C. difficile negative. Stool lactoferin +. Stool cryptosporidium and giardia negative. Rocephin 2g IV QD and Flagyl 500 mg IV Q8H. Zofran 4 mg IV Q6H PRN N/V. NS at 75 cc/hr. Follow stool culture. ID on board. History of liver transplant on immunosuppressive therapy Elevated D-Dimer: Likely due to sepsis. Not on any oxygen. No chest pain. Hold CTA chest for now. Monitor. Elevated troponins: Echo as above. Cardiology on board. CODE STATUS: FULL CODE DVT Prophylaxis: Heparin SQ GI Prophylaxis: Protonix Designated medical POA if patient is not able to make medical decisions for themselves: I have reviewed the following infrastructure consultant notes: I have reviewed the results of the following tests: CBC, CMP. I have ordered the following tests: Pending: Stool culture. I have discussed the care of this patient with the following independent historian: Discussed with RN. I have independently interpreted the following test below: I have discussed the management of this patient with the following physician: Discussed with Dr. Benavidez, stool consistency improving, add Questran, advised yogurt. Objective - Vital Signs Vital signs: Vital Signs Temp 97.8 F 05/25/23 08:05 Pulse 73 05/25/23 11:37 Resp 16 05/25/23 11:37 BP 147/68 05/25/23 11:37 Pulse Ox 95 05/25/23 11:37 FiO2 Intake & Output 05/24/23 05/25/23 05/25/23 18:59 06:59 18:59 Intake Total 236 300 236 Output Total 104 Balance 132 300 236 Intake: Oral 236 300 236 Output: Urine 100 Urine/Stool Mix 4 Other: Voiding Method Toilet Toilet Toilet # Voids 4 1 2 # Bowel Movements 1 1 2 - Labs CBC & Chem 7: 05/25/23 08:25 05/25/23 08:25 Labs: Abnormal Lab Results - Last 24 Hours (Table) 05/23/23 05/25/23 05/25/23 Range/Units 14:01 08:25 08:25 WBC 14.0 H (3.8-10.6) k/uL Neutrophils # 11.1 H (1.3-7.7) k/uL Glucose 124 H (74-99) mg/dL Calcium 7.8 L (8.4-10.2) mg/dL Total Protein 5.3 L (6.3-8.2) g/dL Albumin 2.4 L (3.5-5.0) g/dL Stool Lactoferrin Positive A (Negative) Microbiology - Last 24 Hours (Table) 05/23/23 02:10 Blood Culture - Preliminary Blood 05/23/23 01:55 Blood Culture - Preliminary Blood
[2023-05-25 12:28] VITALS: BMI 34.7
--- NOTE | 2023-05-25 14:33 | P.PN ---
Subjective Progress Note Date: 05/25/23 HISTORY OF PRESENT ILLNESS: This is a 77 old female who initially presented to the hospital with a chief complaint of feeling generally unwell and diarrhea. She states the symptoms have since resolved. Cardiology was consulted for evaluation of elevated troponins. The patient denies having any chest pain or pressure. She denies any shortness of breath. Echocardiogram completed revealing ejection fraction 60% with moderate pulmonary hypertension. Patient is D-dimer was elevated at 6.21. Primary medicine has decided not to pursue CTA at this time. 05/25 Patient is seen today in follow-up. Her GI symptoms seem to be improving. We are following for elevated troponins. Patient denies any new concerns. Blood pressure 147/68, heart rate is in the 70s. Repeat blood work reveals WBC 14, hemoglobin 13. Electrolytes and renal function are normal. Blood sugar 124. PHYSICAL EXAM: VITAL SIGNS: Reviewed. GENERAL: Well-developed in no acute distress. NECK: Supple. No JVD or thyromegaly LUNGS: Respirations even and unlabored. Lungs essentially clear to auscultation bilaterally. HEART: Regular rate and rhythm. S1 and S2 heard. EXTREMITIES: Normal range of motion. No clubbing or cyanosis. Peripheral pulses intact. No lower extremity edema ASSESSMENT: Acute gastroenteritis Leukocytosis Elevated troponins secondary to type II DC Elevated D-dimer History of liver transplant Masslike area of right hepatic lobe, noted on recent CT, patient to follow-up with GI on outpatient basis PLAN: No evidence of acute coronary syndrome Continue current cardiac medications Continue to monitor blood pressure and telemetry monitoring Start patient on aspirin 81 mg daily Further recommendations pending patient course Nurse practitioner note has been reviewed by physician. Signing provider agrees with the documented findings, assessment, and plan of care documented by BRANCH SPECIALIST as a scribe. Objective - Vital Signs Vital signs: Vital Signs Temp 97.8 F 05/25/23 08:05 Pulse 73 05/25/23 13:09 Resp 16 05/25/23 11:37 BP 147/68 05/25/23 11:37 Pulse Ox 95 05/25/23 11:37 FiO2 Intake & Output 05/24/23 05/25/23 05/25/23 18:59 06:59 18:59 Intake Total 236 300 236 Output Total 104 Balance 132 300 236 Weight 86.183 kg Intake: Oral 236 300 236 Output: Urine 100 Urine/Stool Mix 4 Other: Voiding Method Toilet Toilet Toilet # Voids 4 1 2 # Bowel Movements 1 1 2 - Labs CBC & Chem 7: 05/25/23 08:25 05/25/23 08:25 Labs: Abnormal Lab Results - Last 24 Hours (Table) 05/23/23 05/25/23 05/25/23 Range/Units 14:01 08:25 08:25 WBC 14.0 H (3.8-10.6) k/uL Neutrophils # 11.1 H (1.3-7.7) k/uL Glucose 124 H (74-99) mg/dL Calcium 7.8 L (8.4-10.2) mg/dL Total Protein 5.3 L (6.3-8.2) g/dL Albumin 2.4 L (3.5-5.0) g/dL Stool Lactoferrin Positive A (Negative) Microbiology - Last 24 Hours (Table) 05/23/23 02:10 Blood Culture - Preliminary Blood 05/23/23 01:55 Blood Culture - Preliminary Blood
[2023-05-25] MEDS ORDERED: VANCOMYCIN TROUGH DUE 1 EACH MISC MISCELLANE ONE (17:00)
[2023-05-25] MEDS: CHOLESTYRAMINE (WITH SUGAR) 4 GM PACKET PO SCH (17:42)
--- NOTE | 2023-05-25 20:37 | P.PN ---
Subjective Progress Note Date: 05/25/23 Principal diagnosis: Reason for follow-up is fever and diarrhea Patient is a 77-year-old female with a past medical history of hypertension patient to have a history of liver transplant about 23 years ago and has been on immunosuppressive presenting to the hospital with diarrhea did have a fever, stool for C. difficile negative. On today's evaluation there is 05/25/2023 patient did have resolution of the fever and is afebrile today patient is breathing comfortably currently on 2 L nasal cannula oxygen denies any chest pain shortness of breath or cough no abdominal pain mention did have recurrence of her diarrhea about 3 stools today no blood or mucus in the stool and no urinary symptoms. Patient white count is 14,000 creatinine 0.59 stool for C. difficile PCR and EIA negative stool culture are currently pending Objective - Vital Signs Vital signs: Vital Signs Temp 97.8 F 05/25/23 08:05 Pulse 77 05/25/23 08:05 Resp 16 05/25/23 08:05 BP 147/84 05/25/23 08:05 Pulse Ox 91 L 05/25/23 08:05 FiO2 Intake & Output 05/24/23 05/25/23 05/25/23 18:59 06:59 18:59 Intake Total 236 300 236 Output Total 104 Balance 132 300 236 Intake: Oral 236 300 236 Output: Urine 100 Urine/Stool Mix 4 Other: Voiding Method Toilet Toilet # Voids 4 1 # Bowel Movements 1 1 - Exam GENERAL DESCRIPTION: An elderly female lying in bed in no distress RESPIRATORY SYSTEM: Unlabored breathing , decreased breath sounds at bases HEART: S1 S2 regular rate and rhythm , ABDOMEN: Soft , no tenderness EXTREMITIES: No edema feet - Labs CBC & Chem 7: 05/25/23 08:25 05/25/23 08:25 Labs: Abnormal Lab Results - Last 24 Hours (Table) 05/23/23 05/24/23 05/25/23 Range/Units 14:01 08:36 08:25 WBC 14.0 H (3.8-10.6) k/uL Neutrophils # 11.1 H (1.3-7.7) k/uL Potassium 3.3 L (3.5-5.1) mmol/L Glucose 133 H (74-99) mg/dL Calcium 7.4 L (8.4-10.2) mg/dL AST 39 H (14-36) U/L Total Protein 5.2 L (6.3-8.2) g/dL Albumin 2.4 L (3.5-5.0) g/dL Stool Lactoferrin Positive A (Negative) Microbiology - Last 24 Hours (Table) 05/23/23 02:10 Blood Culture - Preliminary Blood 05/23/23 01:55 Blood Culture - Preliminary Blood Assessment and Plan (1) Diarrhea Current Visit: Yes Status: Acute Code(s): R19.7 - DIARRHEA, UNSPECIFIED SNOMED Code(s): 40987744 (2) Leukocytosis Current Visit: No Status: Acute Code(s): D72.829 - ELEVATED WHITE BLOOD CELL COUNT, UNSPECIFIED SNOMED Code(s): 622481655 Plan: 1patient presented hospital with sepsis in this patient who did have fever elevated white count predominantly did have a GI symptom especially with the diarrhea, likely etiology of her sepsis patient did tested negative for C. difficile both EIA and PCR 2-we will add Questran for symptomatic relief and await stool culture to finalize 3-continue with Rocephin and Flagyl if no improvement in the symptoms by tomorrow to obtain a CT Dictation was produced using [email or web address] dictation software. please excuse any grammatical, word or spelling errors. Time with Patient: Less than 30
[2023-05-26] MEDS: PANTOPRAZOLE 40 MG TABLET PO SCH (06:28)
[2023-05-26] MEDS: SODIUM CHLORIDE 0.9% 1,000 ML IV SCH (06:39)
[2023-05-26 08:00] LABS: MCH 29.5 pg (25.0-35.0); MCHC 32.3 g/dL (31.0-37.0); MCV 91.3 fL (80.0-100.0); Platelet Count 276 k/uL (150-450); RBC 4.05 m/uL (3.80-5.40); RDW 13.9 % (11.5-15.5); WBC 10.1 k/uL (3.8-10.6)
[2023-05-26 08:16] LABS: African American GFR (CKD) >90 (>60 ml/min/1.73 sqM); Anion Gap 5 mmol/L; Blood Urea Nitrogen 7 mg/dL (7-17); Calcium 7.7 mg/dL (8.4-10.2); Carbon Dioxide 27 mmol/L (22-30); Chloride 104 mmol/L (98-107); Glucose 124 mg/dL (74-99); Non-African American GFR(CKD) >90 (>60 ml/min/1.73 sqM); Potassium 3.4 mmol/L (3.5-5.1); Sodium 136 mmol/L (137-145)
[2023-05-26] MEDS: HEPARIN SODIUM,PORCINE 5,000 UNIT/ML 1 ML VIAL SQ SCH ×3 (09:03→23:55)
[2023-05-26] MEDS: atenoloL 25 MG TAB PO SCH (09:03)
[2023-05-26] MEDS: ATORVASTATIN 10 MG TAB PO SCH (09:03)
[2023-05-26] MEDS: amLODIPine 5 MG TAB PO SCH (09:03)
[2023-05-26] MEDS: azaTHIOprine 50 MG TAB PO SCH (09:04)
[2023-05-26] MEDS: RAPAMUNE 1 MG PO SCH (09:05)
[2023-05-26] MEDS: ASPIRIN 81 MG PO SCH (09:08)
--- NOTE | 2023-05-26 09:12 | XR ---
EXAMINATION TYPE: XR chest 1V portable DATE OF EXAM: 05/26/2023 Comparison: 05/23/2023 Clinical History: 77-year-old female cough, hypoxia Findings: Ongoing asymmetric elevation right hemidiaphragm. Strandy atelectasis right midlung. Patchy opacity r etrocardiac region and lung base. Right heart margin obscured by the elevated hemidiaphragm. At least a moderate-sized hiatal hernia. Impression: 1. Ongoing asymmetric elevation right hemidiaphragm. If concern for hemidiaphragmatic paralysis, a fl uoroscopic sniff test can be performed. 2. At least a moderate size hiatal hernia. 3. Patchy retrocardiac atelectasis versus developing infiltrate, increased.
[2023-05-26] MEDS: metroNIDAZOLE-NS PMX 500 MG in SALINE 1 100ML.BAG IVPB SCH ×3 (09:38→23:56)
[2023-05-26] MEDS ORDERED: POTASSIUM CHLORIDE ER 20 MEQ TAB.ER PO STA (11:35)
--- NOTE | 2023-05-26 11:35 | P.PN ---
Subjective Progress Note Date: 05/26/23 77-year-old female with history of liver transplant on immunosuppressive therapy, hypertension, dyslipidemia, GERD presenting with diarrhea, fevers and chills. Patient was recently admitted and discharged 10 days ago and was treated for sepsis, dehydration, acute kidney injury and viral gastroenteritis. CT abdomen pelvis completed during that time showed transplant changes to the liver, masslike area within the right hepatic lobe measuring 4.3 cm, further MRI evaluation recommended, pneumobilia, likely secondary to transplant changes, large hiatal hernia, colon mostly unremarkable. On initial presentation, patient was febrile and hypoxic. WBC 22.4, magnesium 1.2, creatinine 0.75, troponin at 0.641. C. difficile negative. Patient was started on Rocephin and Flagyl and admitted for further management. Troponin trended 0.226, 0.641, 0.301. Cardiology consulted, ACS ruled out, recommended to continue current cardiac meds. Echo showed EF 60%, aortic sclerosis. ID recommended continuing antibiotics while waiting for stool cultures to finalize. 05/25 Patient was seen and examined. She reports fatigue and generalized weakness. 4 seedy bowel movements since yesterday. CBC WBC 14. CMP glu 124, Ca 7.8, alb 2.4. 05/26 Patient was seen and examined. Tmax 99.6F over the past 24H. She reports a poor appetite, different taste in her mouth which could be attributed to Flagyl. 1 solid bowel movement since yesterday. CBC unremarkable. BMP Na 136, K 3.4, glu 124, Ca 7.7. BCx prelim negative. Stool Cx pending. CXR done today shows retrocardiac atelectasis vs infiltrate, elevated right hemidiaphragm. General: Non toxic, no distress, appears at stated age Derm: Warm, dry Head: Atraumatic, normocephalic, symmetric Eyes: EOMI, no lid lag, anicteric sclera Mouth: No lip lesion, mucus membranes moist Cardiovascular: S1S2 reg, no murmur Lungs: CTA bilateral, no rhonchi, no rales, no accessory muscle use Abdominal: Soft, nontender to palpation, no guarding, no appreciable organomegaly Ext: No gross muscle atrophy, no edema, no contractures Neuro: no focal neuro deficits Psych: Alert, oriented, appropriate affect Based on my assessment of this patient, this patient meets a moderate complexity level of care. Patient has an acute diagnosis of sepsis due to gastroenteritis with history of liver transplant on immunosuppressive medications that poses a threat to life or bodily function. Sepsis due to Gastroenteritis, recurrent diarrhea: C. difficile negative. Stool lactoferin +. Stool cryptosporidium and giardia negative. Rocephin 2g IV QD and Flagyl 500 mg IV Q8H. Zofran 4 mg IV Q6H PRN N/V. Questeran 4 mg PO BID. NS at 75 cc/hr. Follow stool culture. ID on board. History of liver transplant on immunosuppressive therapy Acute hypoxic respiratory failure likely due to atelectasis: Incentive spirometer ordered. Hypokalemia: KCl 20 meq PO x 1 ordered. Elevated D-Dimer: Likely due to sepsis. No chest pain. Hold CTA chest for now. Monitor. Elevated troponins: Echo as above. Cardiology on board. CODE STATUS: FULL CODE DVT Prophylaxis: Heparin SQ GI Prophylaxis: Protonix Designated medical POA if patient is not able to make medical decisions for themselves: I have reviewed the following senior consultant notes: I have reviewed the results of the following tests: CBC, BMP. I have ordered the following tests: Pending: Stool culture. I have discussed the care of this patient with the following independent historian: I have independently interpreted the following test below: CXR. I have discussed the management of this patient with the following physician: Objective - Vital Signs Vital signs: Vital Signs Temp 98.2 F 05/26/23 09:00 Pulse 88 05/26/23 09:00 Resp 17 05/26/23 09:00 BP 145/83 05/26/23 09:00 Pulse Ox 94 L 05/26/23 09:00 FiO2 Intake & Output 05/25/23 05/26/23 05/26/23 18:59 06:59 18:59 Intake Total 572 240 Balance 572 240 Weight 86.183 kg Intake: Oral 572 240 Other: Voiding Method Toilet Toilet Toilet # Voids 1 2 # Bowel Movements 2 - Labs CBC & Chem 7: 05/26/23 07:43 05/26/23 07:43 Labs: Abnormal Lab Results - Last 24 Hours (Table) 05/26/23 Range/Units 07:43 Sodium 136 L (137-145) mmol/L Potassium 3.4 L (3.5-5.1) mmol/L Glucose 124 H (74-99) mg/dL Calcium 7.7 L (8.4-10.2) mg/dL Microbiology - Last 24 Hours (Table) 05/23/23 02:10 Blood Culture - Preliminary Blood 05/23/23 01:55 Blood Culture - Preliminary Blood
[2023-05-26] MEDS: CHOLESTYRAMINE (WITH SUGAR) 4 GM PACKET PO SCH ×2 (11:43→17:29)
--- NOTE | 2023-05-26 15:48 | CDI ---
Documentation Clarification Form Date: 05/26/2023 03:45:58 PM From: Radha Smith RN, CCDS Phone: [phone] Admit Date: 05/23/2023 05:04:00 AM Patient Name: Taylor Guardado Visit Number: [id number] Discharge Date: ATTENTION: The Clinical Documentation Specialists (CDI) and [facility] Coding Staff appreciate your assistance in clarifying documentation. Please respond to the clarification below the line at the bottom and electronically sign. The CDI & [facility] Coding staff will review the response and follow-up if needed. Please note: Queries are made part of the Legal Health Record. If you have any questions, please contact the author of this message via ITS. Dr. Jaspal Dennis Type 2 ID is documented in the progress note on 05/25/23. Additional clarification regarding the etiology of the Type 2 ID is requested. Patient History/Risk Factors: Hypertension, liver transplant Clinical Indicators: 77-year-old female with history of liver transplant on immunosuppressive present with complaint of fatigue and diarrhea. No active chest pain. 05/23 VS: 115/68 98 24 101.0 88% RA; 119/71 89 18 98.4 95% 4/L NC 05/23 WBC 22.1, 22.4 Neutrophils 21.20, Lactic acid 2.9 05/23 Troponin: 0.226, 0641, and 0301 EKG Results: Sinus Rhythm at 97 BPM; No EKG changes suggestive of ischemia per (H/P 05/23/23) 05/23 ECHO: Normal left ventricular size wall motion systolic function with an ejection fraction 60% Aortic sclerosis without significant stenosis 05/26 Attending: Sepsis due to Gastroenteritis, recurrent diarrhea. Acute hypoxic respiratory failure likely due to atelectasis. Elevated D-Dimer: Likely due to Sepsis. 05/25 ID: patient presented hospital with sepsis in this patient who did have fever elevated white count predominantly did have a GI symptom especially with the diarrhea, likely etiology of her sepsis patient did tested negative for C. difficile both EIA and PCR. Treatment: Telemetry monitoring Monitor blood pressure per orders Tenormin 75 MG PO Daily 05/23- Lipitor 10 MG PO Daily 05/23-05/26 Norvasc 5 MG PO Daily 05/23-05/26 .9 NS @75 ML HR 05/23-05/26 Please clarify the etiology of the Type 2 ID, if known: [ X ] Type 2 ID due to Sepsis [ ] Type 2 ID due to acute respiratory failure with hypoxia [ ] Type 2 ID due to other (please specify ) [ ] Unable to determine [ ] Other Condition, please specify (Template Last Revised: June 2020) MTDD
--- NOTE | 2023-05-26 16:15 | P.PN ---
Subjective Progress Note Date: 05/26/23 HISTORY OF PRESENT ILLNESS: This is a 77 old female who initially presented to the hospital with a chief complaint of feeling generally unwell and diarrhea. She states the symptoms have since resolved. Cardiology was consulted for evaluation of elevated troponins. The patient denies having any chest pain or pressure. She denies any shortness of breath. Echocardiogram completed revealing ejection fraction 60% with moderate pulmonary hypertension. Patient is D-dimer was elevated at 6.21. Primary medicine has decided not to pursue CTA at this time. 05/25 Patient is seen today in follow-up. Her GI symptoms seem to be improving. We are following for elevated troponins. Patient denies any new concerns. Blood pressure 147/68, heart rate is in the 70s. Repeat blood work reveals WBC 14, hemoglobin 13. Electrolytes and renal function are normal. Blood sugar 124. 05/26 Patient denies having any chest pain or shortness of breath, no chest pressure. She states her appetite is decreased. She states she has not had a bowel movement. Blood pressure 133/83, heart rate in the 70s and 80s. Repeat blood work reveals WBC 10.1, hemoglobin 12. Sodium 136, potassium 3.4 and has been replaced. BUN 7 creatinine 0.53. PHYSICAL EXAM: VITAL SIGNS: Reviewed. GENERAL: Well-developed in no acute distress. NECK: Supple. No JVD or thyromegaly LUNGS: Respirations even and unlabored. Lungs essentially clear to auscultation bilaterally. HEART: Regular rate and rhythm. S1 and S2 heard. EXTREMITIES: Normal range of motion. No clubbing or cyanosis. Peripheral pulses intact. No lower extremity edema ASSESSMENT: Acute gastroenteritis Leukocytosis Elevated troponins secondary to type II CT due to gastroenteritis Elevated D-dimer History of liver transplant Masslike area of right hepatic lobe, noted on recent CT, patient to follow-up with GI on outpatient basis PLAN: No evidence of acute coronary syndrome Continue current cardiac medications Continue patient on aspirin 81 mg daily Cardiology will sign off this case and follow on an as-needed basis. Please reconsult for any new concerns. Patient may follow-up in the office in one to 2 weeks. Nurse practitioner note has been reviewed by physician. Signing provider agrees with the documented findings, assessment, and plan of care documented by [employer] as a scribe. Objective - Vital Signs Vital signs: Vital Signs Temp 98.2 F 05/26/23 09:00 Pulse 72 05/26/23 11:45 Resp 17 05/26/23 11:45 BP 133/83 05/26/23 11:45 Pulse Ox 90 L 05/26/23 11:45 FiO2 Intake & Output 05/25/23 05/26/23 05/26/23 18:59 06:59 18:59 Intake Total 572 240 Balance 572 240 Weight 86.183 kg Intake: Oral 572 240 Other: Voiding Method Toilet Toilet Toilet # Voids 1 2 # Bowel Movements 2 - Labs CBC & Chem 7: 05/26/23 07:43 05/26/23 07:43 Labs: Abnormal Lab Results - Last 24 Hours (Table) 05/23/23 05/26/23 Range/Units 14:01 07:43 Sodium 136 L (137-145) mmol/L Potassium 3.4 L (3.5-5.1) mmol/L Glucose 124 H (74-99) mg/dL Calcium 7.7 L (8.4-10.2) mg/dL Stool Calprotectin 52.2 H (<50) mcg/g Microbiology - Last 24 Hours (Table) 05/23/23 02:10 Blood Culture - Preliminary Blood 05/23/23 01:55 Blood Culture - Preliminary Blood
--- NOTE | 2023-05-26 23:26 | P.PN ---
Subjective Progress Note Date: 05/26/23 Principal diagnosis: Reason for follow-up is fever and diarrhea Patient is a 77-year-old female with a past medical history of hypertension patient to have a history of liver transplant about 23 years ago and has been on immunosuppressive presenting to the hospital with diarrhea did have a fever, stool for C. difficile negative. On today's evaluation there is 05/26/2023 patient denies having any fever or any chills she is breathing comfortably on 2 L nasal cannula oxygen no chest pain shortness of breath or cough no nausea no vomiting patient did mention improveme nt in her diarrhea he did have 1 soft bowel movement this morning. Patient white count normalized to 10.1, creatinine 0.53 blood culture negative stool culture currently pending Objective - Vital Signs Vital signs: Vital Signs Temp 98.2 F 05/26/23 09:00 Pulse 72 05/26/23 11:45 Resp 17 05/26/23 11:45 BP 133/83 05/26/23 11:45 Pulse Ox 90 L 05/26/23 11:45 FiO2 Intake & Output 05/25/23 05/26/23 05/26/23 18:59 06:59 18:59 Intake Total 572 240 Balance 572 240 Weight 86.183 kg Intake: Oral 572 240 Other: Voiding Method Toilet Toilet Toilet # Voids 1 2 # Bowel Movements 2 - Exam GENERAL DESCRIPTION: An elderly female lying in bed in no distress RESPIRATORY SYSTEM: Unlabored breathing , decreased breath sounds at bases HEART: S1 S2 regular rate and rhythm , ABDOMEN: Soft , no tenderness EXTREMITIES: No edema feet - Labs CBC & Chem 7: 05/26/23 07:43 05/26/23 07:43 Labs: Abnormal Lab Results - Last 24 Hours (Table) 05/26/23 Range/Units 07:43 Sodium 136 L (137-145) mmol/L Potassium 3.4 L (3.5-5.1) mmol/L Glucose 124 H (74-99) mg/dL Calcium 7.7 L (8.4-10.2) mg/dL Microbiology - Last 24 Hours (Table) 05/23/23 02:10 Blood Culture - Preliminary Blood 05/23/23 01:55 Blood Culture - Preliminary Blood Assessment and Plan (1) Diarrhea Current Visit: Yes Status: Acute Code(s): R19.7 - DIARRHEA, UNSPECIFIED SNOMED Code(s): 00655503 (2) Leukocytosis Current Visit: No Status: Acute Code(s): D72.829 - ELEVATED WHITE BLOOD CELL COUNT, UNSPECIFIED SNOMED Code(s): 483211958 Plan: 1patient presented hospital with sepsis in this patient who did have fever elevated white count predominantly did have a GI symptom especially with the diarrhea, likely etiology of her sepsis patient did tested negative for C. difficile both EIA and PCR 2-patient has shown clinical improvement and the patient white count has normalized stool culture currently pending 3-patient will continue with Rocephin and Flagyl while waiting for the culture to finalize Dictation was produced using [employer] dictation software. please excuse any grammatical, word or spelling errors. Time with Patient: Less than 30
[2023-05-27] MEDS: PANTOPRAZOLE 40 MG TABLET PO SCH (07:01)
[2023-05-27] MEDS: RAPAMUNE 1 MG PO SCH (08:20)
[2023-05-27] MEDS: atenoloL 25 MG TAB PO SCH (08:20)
[2023-05-27] MEDS: ATORVASTATIN 10 MG TAB PO SCH (08:20)
[2023-05-27] MEDS: azaTHIOprine 50 MG TAB PO SCH (08:21)
[2023-05-27] MEDS: amLODIPine 5 MG TAB PO SCH (08:21)
[2023-05-27] MEDS: HEPARIN SODIUM,PORCINE 5,000 UNIT/ML 1 ML VIAL SQ SCH (08:21)
[2023-05-27] MEDS: ASPIRIN 81 MG PO SCH (08:22)
[2023-05-27] MEDS: metroNIDAZOLE-NS PMX 500 MG in SALINE 1 100ML.BAG IVPB SCH (09:47)
[2023-05-27 10:59] VITALS: TEMP 98.5
[2023-05-27] MEDS: CHOLESTYRAMINE (WITH SUGAR) 4 GM PACKET PO SCH (11:09)
[2023-05-27] MEDS: SODIUM CHLORIDE 0.9% 1,000 ML IV SCH (11:09)
--- NOTE | 2023-05-27 11:59 | P.PN ---
Subjective Progress Note Date: 05/27/23 Principal diagnosis: Reason for follow-up is fever and diarrhea Patient is a 77-year-old female with a past medical history of hypertension patient to have a history of liver transplant about 23 years ago and has been on immunosuppressive presenting to the hospital with diarrhea did have a fever, stool for C. difficile negative. On today's evaluation there is 05/27/2023, the patient denies having any fever or any chills, the patient is currently breathing comfortably on room air patient denies having any chest pain cough or sputum production denies any nausea vom iting no abdominal pain and did have improvement in her diarrhea 1 small episode this morning, patient be complaining about the taste of Flagyl and feeling blah Patient white count normalized to 10.1, creatinine 0.53 as of yesterday no lab draw today blood culture negative stool culture currently pending Objective - Vital Signs Vital signs: Vital Signs Temp 97.9 F 05/27/23 04:00 Pulse 80 05/27/23 04:00 Resp 16 05/27/23 04:00 BP 154/77 05/27/23 04:00 Pulse Ox 90 L 05/27/23 04:00 FiO2 Intake & Output 05/26/23 05/27/23 05/27/23 18:59 06:59 18:59 Intake Total 598 200 Balance 598 200 Intake: Oral 598 200 Other: Voiding Method Toilet Toilet # Voids 3 1 - Exam GENERAL DESCRIPTION: An elderly female lying in bed in no distress RESPIRATORY SYSTEM: Unlabored breathing , decreased breath sounds at bases HEART: S1 S2 regular rate and rhythm , ABDOMEN: Soft , no tenderness EXTREMITIES: No edema feet - Labs CBC & Chem 7: 05/26/23 07:43 05/26/23 07:43 Labs: Abnormal Lab Results - Last 24 Hours (Table) 05/23/23 05/23/23 Range/Units 14:01 14:06 Stool Calprotectin 52.2 H (<50) mcg/g Sirolimus 12.8 H (4.0-12.0) ng/mL Microbiology - Last 24 Hours (Table) 05/23/23 02:10 Blood Culture - Preliminary Blood 05/23/23 01:55 Blood Culture - Preliminary Blood Assessment and Plan (1) Diarrhea Current Visit: Yes Status: Acute Code(s): R19.7 - DIARRHEA, UNSPECIFIED SNOMED Code(s): 52449229 (2) Leukocytosis Current Visit: No Status: Acute Code(s): D72.829 - ELEVATED WHITE BLOOD CELL COUNT, UNSPECIFIED SNOMED Code(s): 731731547 Plan: 1patient presented hospital with sepsis in this patient who did have fever elevated white count predominantly did have a GI symptom especially with the diarrhea, likely etiology of her sepsis patient did tested negative for C. difficile both EIA and PCR 2-patient has shown clinical improvement and the patient white count has normalized stool culture are still pending at this point 3-patient will continue with Rocephin and Flagyl while waiting for the culture to finalize versus short course of oral Ceftin and Flagyl on discharge this has been discussed with the admitting physician Patient and the has multiple questions significant amount of time was spent also does questions Dictation was produced using [employer] dictation software. please excuse any grammatical, word or spelling errors. Time with Patient: Less than 30
[2023-05-27 12:24] VITALS: BP 142/78; PULSE 70; RESP 18
--- NOTE | 2023-05-27 13:14 | P.DS ---
Providers Date of admission: 05/23/23 05:04 Expected date of discharge: 05/27/23 Attending physician: Herbie Resendez MD Consults: 05/23/23 06:13 Consult Physician Routine Consulting Provider: Andrae Ware Consult Reason/Comments: elevated trops Do you want consulting provider notified?: Yes, Notify in am 05/23/23 12:03 Consult Physician Routine Consulting Provider: Deanna Benavidez Consult Reason/Comments: diarrhea, immunosuppressed Do you want consulting provider notified?: Yes Primary care physician: Elsa Jang MD Hospital Course: 77-year-old female with history of liver transplant on immunosuppressive therapy, hypertension, dyslipidemia, GERD presenting with diarrhea, fevers and chills. Patient was recently admitted and discharged 10 days ago and was t reated for sepsis, dehydration, acute kidney injury and viral gastroenteritis. CT abdomen pelvis completed during that time showed transplant changes to the liver, masslike area within the right hepatic lobe measuring 4.3 cm, further MRI evaluation recommended, pneumobilia, likely secondary to transplant changes, large hiatal hernia, colon mostly unremarkable. On initial presentation, patient was febrile and hypoxic. WBC 22.4, magnesium 1.2, creatinine 0.75, troponin at 0.641. C. difficile negative. Patient was started on Rocephin and Flagyl and admitted for further management. Troponin trended 0.226, 0.641, 0.301. Cardiology consulted, ACS ruled out, recommended to continue current cardiac meds. Echo showed EF 60%, aortic sclerosis. ID recommended continuing antibiotics while waiting for stool cultures to finalize. 05/25 Patient was seen and examined. She reports fatigue and generalized weakness. 4 seedy bowel movements since yesterday. CBC WBC 14. CMP glu 124, Ca 7.8, alb 2.4. 05/26 Patient was seen and examined. Tmax 99.6F over the past 24H. She reports a poor appetite, different taste in her mouth which could be attributed to Flagyl. 1 solid bowel movement since yesterday. CBC unremarkable. BMP Na 136, K 3.4, glu 124, Ca 7.7. BCx prelim negative. Stool Cx pending. CXR done today shows retrocardiac atelectasis vs infiltrate, elevated right hemidiaphragm. 05/27 Patient was seen and examined. Tmax 99.6F over the past 24H. 1 semi-solid bowel movement since yesterday. Tolerating diet well. Complains of weird taste in her mouth and lack of appetite. I called Nicole Flint and stool Cx is negative so far. Discussed with JOSE Epps with Ceftin and Flagyl for 10 days. Follow up with Cardiology and Infectious disease within 1 week of discharge. She is to keep her outpatient appointment for MRI liver to further evaluated the liver mass. Patient verbalized understanding of the plan. General: Non toxic, no distress, appears at stated age Derm: Warm, dry Head: Atraumatic, normocephalic, symmetric Eyes: EOMI, no lid lag, anicteric sclera Mouth: No lip lesion, mucus membranes moist Cardiovascular: S1S2 reg, no murmur Lungs: CTA bilateral, no rhonchi, no rales, no accessory muscle use Abdominal: Soft, nontender to palpation, no guarding, no appreciable organomegaly Ext: No gross muscle atrophy, no edema, no contractures Neuro: no focal neuro deficits Psych: Alert, oriented, appropriate affect Discharge Diagnosis: Sepsis due to Gastroenteritis, recurrent diarrhea History of liver transplant on immunosuppressive therapy Acute hypoxic respiratory failure likely due to atelectasis Hypokalemia Elevated D-Dimer Elevated troponins This complex discharge took 35 minutes to complete. Patient Condition at Discharge: Stable Plan - Discharge Summary Discharge Rx Participant: No New Discharge Prescriptions: New cefUROXime axetiL [Ceftin] 500 mg PO BID 10 Days #20 tab metroNIDAZOLE [Flagyl] 500 mg PO TID #30 tab Aspirin 81 mg PO DAILY #30 tab Cholestyramine (with Sugar) [Questran Packet] 4 gm PO BID@1000,1800 #14 packet Continue prednisoLONE ACETATE 1% OPHTH [Pred Forte 1%] 1 drop RIGHT EYE BID ursodioL [Ursodiol] 300 mg PO BID Omeprazole [PriLOSEC] 20 mg PO DAILY Atorvastatin [Lipitor] 10 mg PO DAILY amLODIPine [Norvasc] 5 mg PO DAILY Ketorolac 0.5% Ophth Soln [Acular 0.5%] 1 drop RIGHT EYE BID Sirolimus 1 mg PO DAILY Cholecalciferol [Vitamin D3 (25 Mcg = 1000 Iu)] 50 mcg PO DAILY azaTHIOprine [Imuran] 50 mg PO DAILY atenoloL [Tenormin] 75 mg PO DAILY Acetaminophen Tab [Tylenol] 650 mg PO Q6HR PRN tab PRN Reason: Mild Pain Or Fever > 100.5 Discharge Medication List Atorvastatin [Lipitor] 10 mg PO DAILY 05/11/23 [History] Cholecalciferol [Vitamin D3 (25 Mcg = 1000 Iu)] 50 mcg PO DAILY 05/11/23 [History] Ketorolac 0.5% Ophth Soln [Acular 0.5%] 1 drop RIGHT EYE BID 05/11/23 [History] Omeprazole [PriLOSEC] 20 mg PO DAILY 05/11/23 [History] Sirolimus 1 mg PO DAILY 05/11/23 [History] amLODIPine [Norvasc] 5 mg PO DAILY 05/11/23 [History] atenoloL [Tenormin] 75 mg PO DAILY 05/11/23 [History] azaTHIOprine [Imuran] 50 mg PO DAILY 05/11/23 [History] prednisoLONE ACETATE 1% OPHTH [Pred Forte 1%] 1 drop RIGHT EYE BID 05/11/23 [History] ursodioL [Ursodiol] 300 mg PO BID 05/11/23 [History] Acetaminophen Tab [Tylenol] 650 mg PO Q6HR PRN tab 05/14/23 [Rx] Aspirin 81 mg PO DAILY #30 tab 05/27/23 [Rx] Cholestyramine (with Sugar) [Questran Packet] 4 gm PO BID@1000,1800 #14 packet 05/27/23 [Rx] cefUROXime axetiL [Ceftin] 500 mg PO BID 10 Days #20 tab 05/27/23 [Rx] metroNIDAZOLE [Flagyl] 500 mg PO TID #30 tab 05/27/23 [Rx] Follow up Appointment(s)/Referral(s): Jaspal Dennis DO [STAFF PHYSICIAN] - 1 Week Elsa Jang MD [Primary Care Provider] - 1-2 days Deanna Benavidez MD [STAFF PHYSICIAN] - 1 Week Patient Instructions/Handouts: Sepsis (DC) Discharge Disposition: HOME SELF-CARE
== END 2023-05-27 12:38 | disposition home or self-care (01) | DRG 871 ==
LOC: EC 01:36 → 3SCARD 05:04
PROVIDERS: ADMIT Internal Medicine; ATTEND Internal Medicine
DX: A41.89 Other specified sepsis (principal); I21.A1 Myocardial infarction type 2; J96.01 Acute respiratory failure with hypoxia; Z94.4 Liver transplant status; D84.821 Immunodeficiency due to drugs; I27.20 Pulmonary hypertension, unspecified; I11.9 Hypertensive heart disease without heart failure; I70.0 Atherosclerosis of aorta; E78.5 Hyperlipidemia, unspecified; E83.42 Hypomagnesemia; E87.6 Hypokalemia; A08.4 Viral intestinal infection, unspecified; Z79.899 Other long term (current) drug therapy; Z79.624 Long term (current) use of inhibitors of nucleotide synthesis; Z11.52 Encounter for screening for COVID-19
CPT/HCPCS: 36410; 36415; 71045; 71046; 76937; 80048; 80053; 80195; 81001; 83605; 83630; 83735; 83993; 84484; 85025; 85027; 85379; 85610; 85730; 87040; 87045; 87046; 87324; 87328; 87329; 87493; 87636; 93005; 93306; 94760; 96361; 96365; 96366; 96367; 96372; 99291

== ENCOUNTER 2023-08-02 16:29 | Emergency (ER) | payer MEDICARE, OTHER ==
--- NOTE | 2023-08-02 16:41 | ED ---
General Adult HPI - General Chief complaint: Fall Stated complaint: Fall, injury to L wrist Time Seen by Provider: 08/02/23 16:40 Source: patient Mode of arrival: ambulatory Limitations: no limitations - History of Present Illness Initial comments: Patient presents to the ED with her for evaluation. Patient states that she sustained a mechanical fall while at her residence just prior to coming to the ED this afternoon. Patient states that she believes that her foot got stuck on something, causing her to fall. Patient states that she landed on her left arm, and she is currently complaining of having left wrist pain. Patient denies any other injury or site of pain, head injury, LOC, headache, neck/back/lower extremity pain, chest pain, dyspnea, dizziness, abdominal pain, nausea or vomiting, focal neuro deficit, or any other symptoms or complaints. Patient denies anticoagulant medication use. - Related Data Home Medications Medication Instructions Recorded Confirmed Atorvastatin [Lipitor] 10 mg PO DAILY 05/11/23 05/23/23 Cholecalciferol [Vitamin D3 (25 50 mcg PO DAILY 05/11/23 05/23/23 Mcg = 1000 Iu)] Ketorolac 0.5% Ophth Soln [Acular 1 drop RIGHT EYE BID 05/11/23 05/23/23 0.5%] Omeprazole [PriLOSEC] 20 mg PO DAILY 05/11/23 05/23/23 Sirolimus 1 mg PO DAILY 05/11/23 05/23/23 amLODIPine [Norvasc] 5 mg PO DAILY 05/11/23 05/23/23 atenoloL [Tenormin] 75 mg PO DAILY 05/11/23 05/23/23 azaTHIOprine [Imuran] 50 mg PO DAILY 05/11/23 05/23/23 prednisoLONE ACETATE 1% OPHTH 1 drop RIGHT EYE BID 05/11/23 05/23/23 [Pred Forte 1%] ursodioL [Ursodiol] 300 mg PO BID 05/11/23 05/23/23 Previous Rx's Medication Instructions Recorded Acetaminophen Tab [Tylenol] 650 mg PO Q6HR PRN tab 05/14/23 Aspirin 81 mg PO DAILY #30 tab 05/27/23 Cholestyramine (with Sugar) 4 gm PO BID@1000,1800 #14 packet 05/27/23 [Questran Packet] cefUROXime axetiL [Ceftin] 500 mg PO BID 10 Days #20 tab 05/27/23 metroNIDAZOLE [Flagyl] 500 mg PO TID #30 tab 05/27/23 Allergies Allergy/AdvReac Type Severity Reaction Status Date / Time No Known Allergies Allergy Verified 08/02/23 16:38 Review of Systems ROS Statement: Those systems with pertinent positive or pertinent negative responses have been documented in the HPI. ROS Other: All systems not noted in ROS Statement are negative. Past Medical History Past Medical History: Hypertension History of Any Multi-Drug Resistant Organisms: None Reported Additional Past Surgical History / Comment(s): liver transplant Past Anesthesia/Blood Transfusion Reactions: No Reported Reaction Past Psychological History: No Psychological Hx Reported Smoking Status: Never smoker Past Alcohol Use History: None Reported Past Drug Use History: None Reported General Exam Limitations: no limitations General appearance: alert, in no apparent distress Head exam: Present: atraumatic Eye exam: Present: normal appearance ENT exam: Present: mucous membranes moist Neck exam: Absent: tenderness Respiratory exam: Present: normal lung sounds bilaterally. Absent: respiratory distress, wheezes, rales, rhonchi, stridor Cardiovascular Exam: Present: regular rate, normal rhythm, normal heart sounds, other (Normal radial pulses bilaterally) GI/Abdominal exam: Present: soft. Absent: distended, tenderness, guarding Extremities exam: Present: other (Diffuse left wrist swelling and tenderness; pelvis is stable and nontender) Back exam: Absent: tenderness Neurological exam: Present: alert, oriented X3. Absent: motor sensory deficit Psychiatric exam: Present: normal affect Skin exam: Present: warm, dry, intact, normal color Course Vital Signs 08/02/23 08/02/23 16:34 18:38 Temperature 97.8 F Pulse Rate 73 80 Respiratory 15 18 Rate Blood Pressure 149/85 132/78 O2 Sat by Pulse 95 100 Oximetry Procedures - Orthopedic Splinting/Casting Injury #1 Side: left Upper Extremity Injury Location: wrist Upper Extremity Immobilizer: sling/shoulder immobilizer, sugar tong splint Medical Decision Making - Medical Decision Making Was pt. sent in by a medical professional or institution (, PA, MARKER MACHINE, urgent care, hospital, or correction...) When possible be specific @ -No Did you speak to anyone other than the patient for history (EMS, parent, family, police, friend...)? What history was obtained from this source @ -No Did you review nursing and triage notes (agree or disagree)? Why? @ -I reviewed and agree with nursing and triage notes Were old charts reviewed (outside hosp., previous admission, EMS record, old EKG, old radiological studies, urgent care reports/EKG's, correction records)? Report findings @ -No old charts were reviewed Differential Diagnosis (chest pain, altered mental status, abdominal pain women, abdominal pain men, vaginal bleeding, weakness, fever, dyspnea, syncope, headache, dizziness, GI bleed, back pain, seizure, CVA, palpatations, mental health, musculoskeletal)? @ -Fall, sprain, strain, fracture, dislocation, hematoma EKG interpreted by me (3pts min.). @ -None done X-rays interpreted by me (1pt min.). @ -Left wrist x-rays were reviewed myself and demonstrate comminuted and impacted distal radius fracture, as well as ulnar styloid fracture. I agree with the radiologist's interpretation as above. CT interpreted by me (1pt min.). @ -None done U/S interpreted by me (1pt. min.). @ -None done What testing was considered but not performed or refused? (CT, X-rays, U/S, labs)? Why? @ -None What meds were considered but not given or refused? Why? @ -None Did you discuss the management of the patient with other professionals (professionals i.e. , PA, MARKER MACHINE, lab, RT, psych nurse, social media director, plastic parts fabricator, teacher, bomb squad officer, spring encaser)? Give summary @ -No Was smoking cessation discussed for >3mins.? @ -No Was critical care preformed (if so, how long)? @ -No Were there social determinants of health that impacted care today? How? (Homelessness, low income, unemployed, alcoholism, drug addiction, transportat ion, low edu. Level, literacy, decrease access to med. care, residential, rehab)? @ -No Was there de-escalation of care discussed even if they declined (Discuss DNR or withdrawal of care, Hospice)? DNR status @ -No What co-morbidities impacted this encounter? (DM, HTN, Smoking, COPD, CAD, Cancer, CVA, ARF, Chemo, Hep., AIDS, mental health diagnosis, sleep apnea, morbid obesity)? @ -None Was patient admitted / discharged? Hospital course, mention meds given and route, prescriptions, significant lab abnormalities, going to OR and other pertinent info. @ -Left wrist x-rays show a closed left wrist fractures. Sugar-tong splint was applied to the patient's left arm. Will discharge patient home with her family at this time with starter pack of Tylenol #3's. Patient was instructed to follow-up closely with orthopedic surgery. Strict return instructions were provided. Patient and family feel comfortable with this plan. Undiagnosed new problem with uncertain prognosis? @ -No Drug Therapy requiring intensive monitoring for toxicity (Heparin, Nitro, Insulin, Cardizem)? @ -No Were any procedures done? @ -No Diagnosis/symptom? @ -Mechanical fall and closed left wrist fracture Acute, or Chronic, or Acute on Chronic? @ -Acute Uncomplicated (without systemic symptoms) or Complicated (systemic symptoms)? @ -Default Side effects of treatment? @ -No Exacerbation, Progression, or Severe Exacerbation? @ -No Poses a threat to life or bodily function? How? (Chest pain, [place], [place], pneumonia, PE, COPD, DKA, ARF, appy, cholecystitis, CVA, Diverticulitis, Homicidal, Suicidal, threat to staff... and all critical care pts) @ -No - Radiology Data Left wrist x-rays: Comminuted and impacted distal radial fracture noted with intra-articular extension. There is ulnar styloid component as well. Soft tissue deformity and swelling noted. Dorsal angulation seen. Disposition Clinical Impression: Fall, Wrist fracture, left Disposition: HOME SELF-CARE Condition: Stable Instructions (If sedation given, give patient instructions): Wrist Fracture in Adults (ED), Splint Care (ED), Fall Prevention (ED) Additional Instructions: Return to the ER immediately should you develop new or worsening pain, numbness or weakness, or new or worsening symptoms. Follow-up closely with orthopedic surgery, as well as your primary care provider. Is patient prescribed a controlled substance at d/c from ED?: No Referrals: Elsa Jang MD [Primary Care Provider] - 1-2 days Arthur Irizarry DO [Doctor of Osteopathic Medicine] - 1-2 days Time of Disposition: 17:59
[2023-08-02 16:46] VITALS: TEMP 97.8
[2023-08-02] MEDS: HYDROcodone/APAP 5-325MG 1 EACH TAB PO STA (17:21)
[2023-08-02] MEDS: ACET/COD 300 MG/30 MG STARTER PACK 6 TAB BTL PO STA (18:15)
[2023-08-02 19:13] VITALS: BP 132/78; PULSE 80; RESP 18
--- NOTE | 2023-08-02 21:08 | XR ---
EXAMINATION TYPE: XR wrist complete LT DATE OF EXAM: 08/02/2023 CLINICAL HISTORY: pain TECHNIQUE: Frontal, lateral and oblique images of the left wrist are obtained. COMPARISON: None. FINDINGS: Comminuted and impacted distal radial fracture noted with intra-articular extension. There is ulnar styloid component as well. Soft tissue deformity and swelling noted. Dorsal angulation seen. IMPRESSION: As above
== END 2023-08-02 18:39 | disposition home or self-care (01) ==
LOC: EC 16:29
DX: S52.572A Other intraarticular fracture of lower end of left radius, initial encounter for closed fracture (principal); W23.0XXA Caught, crushed, jammed, or pinched between moving objects, initial encounter
CPT/HCPCS: 29125; 99284

== ENCOUNTER → 2023-11-18 | Outpatient (CLI) | payer MEDICARE, OTHER ==
[2023-11-18 15:03] LABS: Basophils # (A) 0.04 X 10*3/uL (0.00-0.10); Basophils % (A) 0.6 %; Eosinophils # (A) 0.16 X 10*3/uL (0.04-0.35); Eosinophils % (A) 2.3 %; HCT 48.6 % (37.2-46.3); HGB 15.8 g/dL (12.0-15.0); Lymphocytes # (A) 2.21 X 10*3/uL (0.90-5.00); MCH 30.8 pg (27.0-32.0); MCHC 32.5 g/dL (32.0-37.0); MCV 94.7 FL (80.0-97.0); Mean Platelet Volume 10.5 FL (9.5-12.2); Monocytes # (A) 0.56 X 10*3/uL (0.20-1.00); Monocytes % (A) 8.1 %; NRBC Per 100 WBC 0 X 10*3/uL (0.00-0.01); Neutrophils # (A) 3.91 X 10*3/uL (1.80-7.70); Neutrophils % (A) 56.7 %; Platelet Count 230 X 10*3/uL (140-440); RBC 5.13 X 10*6/uL (4.10-5.20); RDW 15.1 % (11.5-14.5)
[2023-11-18 15:24] LABS: ALT 10 U/L (8-44); AST 23 U/L (13-35); Albumin 4.1 g/dL (3.8-4.9); Albumin/Globulin Ratio 1.64 Ratio (1.60-3.17); Alkaline Phosphatase 150 U/L (41-126); BUN/Creat Ratio 19.78 Ratio (12.00-20.00); Bilirubin, Conjugated 0.46 mg/dL (0.20-0.40); Bilirubin,Unconjugated 1.34 mg/dL (0.20-1.00); Blood Urea Nitrogen 17.8 mg/dL (9.0-27.0); Calcium 9.6 mg/dL (8.7-10.3); Carbon Dioxide 25.8 mmol/L (21.6-31.8); Chloride 106 mmol/L (96-109); Chol/HDL Ratio 2.67 Ratio; Globulin 2.5 g/dL (1.6-3.3); Glucose 113 mg/dL (70-110); LDL Cholesterol,Calculated 85.1 mg/dL (0.0-131.0); Magnesium 1.6 mg/dL (1.5-2.4); Potassium 4.4 mmol/L (3.5-5.5); Sodium 143 mmol/L (135-145); Total Bilirubin 1.8 mg/dL (0.3-1.2); Total Protein 6.6 g/dL (6.2-8.2)
[2023-11-18 21:30] LABS: Creatinine,Urine Random 62.8 mg/dL (28.0-217.0); Total Protein,Urine Random 7.2 mg/dL (0.0-13.5)
== END | disposition home or self-care (01) ==
LOC: LABWHC1 07:57
PROVIDERS: ATTEND Internal Medicine Gastroenterology
DX: Z51.81 Encounter for therapeutic drug level monitoring (principal); Z48.298 Encounter for aftercare following other organ transplant; D84.9 Immunodeficiency, unspecified; Z79.899 Other long term (current) drug therapy; Z94.4 Liver transplant status
CPT/HCPCS: 36415; 80048; 80061; 80076; 80195; 82570; 83735; 84156; 85025

== ENCOUNTER → 2024-03-21 | Outpatient (CLI) | payer MEDICARE, OTHER ==
[2024-03-21 11:27] LABS: Alpha Fetoprotein, Tumor Mkr 3.5 ng/mL (0.00-7.90); Carcinoembryonic Antigen 10.5 ng/mL (0.0-4.9)
== END | disposition home or self-care (01) ==
LOC: LABWHC1 07:16
PROVIDERS: ATTEND Student in an Organized Health Care Education/Training Program
DX: D84.9 Immunodeficiency, unspecified (principal); R97.8 Other abnormal tumor markers; Z94.4 Liver transplant status
CPT/HCPCS: 36415; 82105; 82378; 82977; 86301